=== PATIENT | female | born 1950 | race Caucasian/White ===

== ENCOUNTER 2018-08-28 14:07 | Inpatient (IN) | payer OTHER ==
[~2018-08-28] VITALS: Ht 160 cm; Wt 103.3 kg
--- NOTE | ~2018-08-28 | EKG ---
[address] [address] ELECTROCARDIOGRAM REPORT Name: BJ HODGES Room #: 206-P ADM IN M.R.#: [id number] Admission: 08/28/18 Attend Phys: Herb Clayton MD Discharge: Date of : 48 Report #: [id number] THIS REPORT FOR: //name// [facility] ED Test Date: 2018-08-28 Test Time: 14:34:55 Pat Name: BJ HODGES Department: Room: [facility] Gender: F Hop Strainer: BRITTANEY : 1950 Requested By: Rolando Crabtree Order Number: [id number] MD: Max Bartlett Measurements Intervals [place] Rate: 86 P: 72 [place]: 153 QRS: 136 QRSD: 85 T: 43 QT: 412 QTc: 493 Interpretive Statements Sinus rhythm Anteroseptal infarct, age indeterminate Compared to ECG 02/11/2006 10:39:03 Myocardial infarct finding now present Electronically Signed On 08-30-2018 11:07:32 TAX MAP TECHNICIAN by Max Bartlett [email or web address] <ELECTRONICALLY SIGNED> By: Max Bartlett MD 08/30/18 1107 1434 143 Max Bartlett MD /TANYA
--- NOTE | ~2018-08-28 | 2DMMODE ---
[facility] [address] [place] [address] 2 D/M-MODE ECHOCARDIOGRAM Name: BJ HODGES Room #: 206-P [facility] IN [facility]#: [id number] Admission: 08/28/18 Attend Phys: Herb Clayton MD Discharge: Date of : 48 Date of Service: 08/30/18 1032 Report #: [id number] THIS REPORT FOR: //name// APPROVED REPORT Study performed: 08/30/2018 09:38:24 EXAM: Comprehensive 2D, Doppler, and color-flow Echocardiogram Patient Location: In-Patient Room #: 206 Status: routine BSA: 2.04 HR: 92 bpm BP: 152/63 mmHg Other Information Study Quality: Technically Difficult/Adequate Technically limited study due to body habitus. Indications Pulmonary Embolism Dyspnea Chest Pain 2D Dimensions RVDd: 30.52 mm IVSd: 14.41 (7-11mm) LVOT Diam: 22.17 (18-24mm) LVDd: 41.76 mm PWd: 12.00 (7-11mm) Ascending Ao: 34.60 (22-36mm) LVDs: 30.67 (25-40mm) Aortic Root: 31.98 mm IVC: 21.00 mm Volumes Left Atrial Volume (Systole) Single Plane 4CH: 38.56 mL Single Plane 2CH: 41.63 mL LA ESV Index: 21.00 mL/m2 Aortic Valve AoV Peak Felix.: 1.64 m/s AO Peak Gr.: 10.80 mmHg LVOT Max P.45 mmHg LVOT Max V: 1.27 m/s COSTA Vmax: 2.98 cm2 Mitral Valve [facility] [address] [address] 2 D/M-MODE ECHOCARDIOGRAM Name: BJ HODGES Room #: [address] [place] [address] IN [facility]#: [id number] Admission: 08/28/18 Attend Phys: Herb Clayton MD Discharge: Date of : 48 Date of Service: 08/30/18 1032 Report #: [id number] E/A Ratio: 0.9 MV Decel. Time: 172.67 ms MV E Max Felix.: 0.63 m/s MV A Felix.: 0.70 m/s MV PHT: 50.07 ms IVRT: 83.04 ms Pulmonary Valve PV Peak Felix.: 1.21 m/s PV Peak Gr.: 5.92 mmHg Tricuspid Valve RAP Estimate: 5.00 mmHg Left Ventricle The left ventricle is normal size. There is normal left ventricular wall thickness. The left ventricular systolic function is normal. The left ventricular ejection fraction is within the normal range. LVEF is 65-70%. Grade II - pseudonormal filling dynamics. Right Ventricle The right ventricle is normal size. The right ventricular systolic function is normal. Atria The left atrium size is normal. Right atrium is at the upper limits of normal. Aortic Valve The aortic valve is normal in structure. No aortic regurgitation is present. There is no aortic valvular stenosis. Mitral Valve The mitral valve is normal in structure. There is no mitral valve regurgitation noted. No evidence of mitral valve stenosis. Tricuspid Valve The tricuspid valve is normal in structure. There is no tricuspid valve regurgitation noted. Unable to assess PA pressure. Pulmonic Valve Pulmonic valve is not well visualized. Great Vessels The aortic root is normal in size. IVC is upper limits of normal in size and collapses >50% with inspiration. [facility] [address] [place] [address] 2 D/M-MODE ECHOCARDIOGRAM Name: BJ HODGES Christopher Room #: 206-P [facility] IN .R.#: [id number] Admission: 08/28/18 Attend Phys: Herb Clayton MD Discharge: Date of : 48 Date of Service: 08/30/18 1032 Report #: [id number] Pericardium There is no pericardial effusion. <Conclusion> The left ventricle is normal size. There is normal left ventricular wall thickness. The left ventricular systolic function is normal. The right ventricle is normal size. The left atrium size is normal. The aortic valve is normal in structure. The mitral valve is normal in structure. There is no tricuspid valve regurgitation noted. Unable to assess PA pressure. <ELECTRONICALLY SIGNED> By: Thierno Rodriguez MD 08/30/181031 31 31 Thierno Rodriguez MD /INF
[2018-08-28 14:07] VITALS: BP 131/65
[~2018-08-28 14:07] MED LIST: ADVAIR 250-501 EACH INH; ALBUTEROL INHAL17 GM INH; AUGMENTIN 875875 MG PO; CELEXA20 MG PO; COLACE100 MG PO; FUROSEMIDE PO; LASIX 20 MG TAB20 MG PO; NORCO 5-325 TA1 EACH PO; PAXIL10 MG; PERCOCET PO; SINGULAIR 10 MG10 M1 PO; SPIRIVA
[2018-08-28 14:29] LABS: ABSOLUTE NEUTROPHILS 8.8 thou/uL (1.4-8.2); BASOPHILS 0.8 % (0.0-2.0); EOSINOPHILS 0.7 % (0.0-3.0); HEMATOCRIT 42.1 % (37.0-47.0); HEMOGLOBIN 14.3 gm/dL (12.0-15.0); LYMPHOCYTES 8.1 % (24.0-44.0); MCH 31.5 pg (26.0-34.0); MCHC 33.9 g/dL (28.0-37.0); MCV 93.1 fL (80.0-100.0); MONOCYTES 8.4 % (1.0-8.0); PLATELET COUNT 265 thou/uL (150-400); RBC 4.53 mil/uL (4.20-5.00); RDW 17.7 % (10.5-14.5); WBC 10.7 thou/uL (4.0-11.0)
[2018-08-28 14:31] LABS: BE(vivo) 1.3 mmol/L (-2 to +3); HCO3 27.9 mmol/L (22.0-26.0); PCO2 52.1 mmHg (35.0-45.0); PO2 73.9 mmHg (80.0-100.0); pH 7.347 (7.360-7.450)
[2018-08-28 14:39] LABS: ANION GAP 6 mmol/L (7-16); BUN 16 mg/dL (7-18); CALCIUM 8.5 mg/dL (8.5-10.1); CHLORIDE 96 mmol/L (98-107); CO2 31 mmol/L (21-32); CREATININE 1.4 mg/dL (0.6-1.0); GLUCOSE 134 mg/dL (74-106); POTASSIUM 4.5 mmol/L (3.5-5.1); SODIUM 133 mmol/L (136-145)
[2018-08-28 14:48] LABS: ALBUMIN 2.8 g/dL (3.4-5.0); SGOT 14 U/L (15-37); SGPT 16 U/L (30-65); TOTAL BILIRUBIN 0.6 mg/dL (<0.1-1.0); TOTAL PROTEIN 7.3 g/dL (6.4-8.2); TROPONIN-I <0.06 ng/mL (<0.06)
[2018-08-28 15:36] LABS: URINE BILIRUBIN NEGATIVE (Negative); URINE BLOOD 1+ (Negative); URINE CLARITY CLEAR; URINE COLOR YELLOW; URINE GLUCOSE-RANDOM* NEGATIVE (Negative); URINE KETONES NEGATIVE (Negative); URINE LEUKOCYTES-REFLEX NEGATIVE (Negative); URINE NITRITE-REFLEX NEGATIVE (Negative); URINE PROTEIN (DIPSTICK) 2+ (Negative); URINE SPECIFIC GRAVITY 1.015 (1.005-1.035); URINE UROBILINOGEN 0.2 E.U./dl (0.2-1.0)
[2018-08-28 15:46] LABS: SQUAMOUS 4-10 Moderate /LPF (0-3)
[2018-08-28 15:48] LABS: AMORPHOUS URATES Few /LPF (None Seen); BACTERIA-REFLEX 1-9 Few /HPF (None Seen); CASTS None Seen /LPF (None Seen); MUCUS 0-3 Light strn/LPF (None Seen); RENAL EPITHELIAL CELLS 0-3 Few /LPF (None Seen); TRANSITIONAL EPITHEL CELL 0-3 Few /LPF (None Seen); URINE RBC 3-10 Few /HPF (0-2); URINE WBC-REFLEX 0-5 Rare /HPF (0-5)
[2018-08-28] MEDS ORDERED: POTASSIUM20 PO (17:16)
[2018-08-28] MEDS ORDERED: NEPHROCAPS SOFT1 CAP PO (17:18)
[2018-08-28] MEDS ORDERED: CENTRUM SILVER1 EAC4 PO (17:18)
[2018-08-28] MEDS ORDERED: VITAMIN D1000 UNI1 PO (17:19)
[2018-08-28] MEDS ORDERED: BENADRYL25 MG PO (17:19)
[2018-08-28 17:56] VITALS: BP 159/76
[2018-08-28 21:32] VITALS: BP 142/96
[2018-08-29 00:21] VITALS: BP 133/64
[2018-08-29 04:54] LABS: CALCIUM 8.8 mg/dL (8.5-10.1); CREATININE 1.3 mg/dL (0.6-1.0); POTASSIUM 4.8 mmol/L (3.5-5.1)
[2018-08-29 05:09] LABS: HEMATOCRIT 41.3 % (37.0-47.0); HEMOGLOBIN 13.8 gm/dL (12.0-15.0); MCH 31.5 pg (26.0-34.0); MCHC 33.4 g/dL (28.0-37.0); MCV 94.2 fL (80.0-100.0); RBC 4.38 mil/uL (4.20-5.00); RDW 17.9 % (10.5-14.5); WBC 10.7 thou/uL (4.0-11.0)
[2018-08-29 05:58] VITALS: BP 158/82
[2018-08-29 07:40] VITALS: BP 157/90
[2018-08-29 12:10] VITALS: BP 149/80
[2018-08-29 16:00] VITALS: BP 175/88
[2018-08-29 20:14] VITALS: BP 174/82
[2018-08-30 04:45] VITALS: BP 152/63
[2018-08-30 07:43] VITALS: BP 137/63
[2018-08-30 11:34] VITALS: BP 147/78
[2018-08-30 15:43] VITALS: BP 132/84
[2018-08-30 20:26] VITALS: BP 146/63
[2018-08-31 04:56] VITALS: BP 146/93
[2018-08-31 08:00] VITALS: BP 135/58
[2018-08-31 15:45] VITALS: BP 151/69
[2018-08-31 19:15] VITALS: BP 146/61
[2018-09-01 01:08] LABS: ADENOVIRUS Negative (Negative); INFLUENZA A Negative (Negative); INFLUENZA B Negative (Negative); METAPNEUMOVIRUS Negative (Negative); PARAINFLUENZA 1 Negative (Negative); PARAINFLUENZA 2 Negative (Negative); PARAINFLUENZA 3 Negative (Negative); RHINOVIRUS Positive (Negative); RSV A Negative (Negative); RSV B Negative (Negative)
[2018-09-01 04:30] VITALS: BP 153/77
[2018-09-01 07:32] VITALS: BP 152/65
[2018-09-01 16:11] VITALS: BP 143/54
[2018-09-01 20:15] VITALS: BP 141/52
[2018-09-02 04:53] VITALS: BP 155/55
[2018-09-02 07:45] VITALS: BP 139/48
[2018-09-02] MEDS ORDERED: IPRAT-ALBUT 0.5-3 ML INH (09:49)
[2018-09-02] MEDS ORDERED: ELIQUIS5 MG PO ×2 (09:50→09:55)
[2018-09-02 13:36] VITALS: BP 139/48
[2018-09-02 13:47] VITALS: BP 139/48
[2018-09-02 14:12] VITALS: BP 139/48
[2018-09-02 15:00] VITALS: BP 139/48
== END 2018-09-02 15:03 | disposition home health service (06) | DRG 682 ==
LOC: ER 14:07 → 2N 17:06 → EROBS 17:06 → 2N 19:41 → ENTRNSPT 09-02 14:50 → EDTRNSPTSTS 09-02 14:53 → 2N 09-02 15:03
PROVIDERS: Hospitalist; Pediatrics; Physician Assistant
DX: N17.9 Acute kidney failure, unspecified (principal); I26.99 Other pulmonary embolism without acute cor pulmonale; J96.21 Acute and chronic respiratory failure with hypoxia; I50.31 Acute diastolic (congestive) heart failure; J44.1 Chronic obstructive pulmonary disease with (acute) exacerbation; J45.909 Unspecified asthma, uncomplicated; K21.9 Gastro-esophageal reflux disease without esophagitis; K43.9 Ventral hernia without obstruction or gangrene; F17.210 Nicotine dependence, cigarettes, uncomplicated; E11.9 Type 2 diabetes mellitus without complications; I11.0 Hypertensive heart disease with heart failure; Z79.899 Other long term (current) drug therapy; Z83.6 Family history of other diseases of the respiratory system; Z23 Encounter for immunization; Z88.6 Allergy status to analgesic agent
CPT/HCPCS: 10081

== ENCOUNTER 2019-10-13 13:30 | Inpatient (IN) | payer OTHER ==
[~2019-10-13] VITALS: Ht 160 cm; Wt 98.6 kg
[2019-10-13] VITALS (12 sets, daily range): BP systolic 118–146; BP diastolic 43–57
[~2019-10-13 13:30] MED LIST changes: +BENADRYL25 MG PO; +CENTRUM SILVER1 EAC4 PO; +ELIQUIS5 MG PO; +IPRAT-ALBUT 0.5-3 ML INH; +NEPHROCAPS SOFT1 CAP PO; +POTASSIUM20 PO; +VITAMIN D1000 UNI1 PO
[2019-10-13 14:05] LABS: HEMATOCRIT 25.1 % (37.0-47.0); HEMOGLOBIN 7.7 gm/dL (12.0-15.0); MCH 29.5 pg (26.0-34.0); MCHC 30.6 g/dL (28.0-37.0); MCV 96.3 fL (80.0-100.0); PLATELET COUNT 344 thou/uL (150-400); RBC 2.61 mil/uL (4.20-5.00); RDW 17.6 % (10.5-14.5); WBC 22.8 thou/uL (4.0-11.0)
[2019-10-13 14:08] LABS: CALCIUM 8.4 mg/dL (8.5-10.1); CREATININE 1.4 mg/dL (0.6-1.0); POTASSIUM 4.1 mmol/L (3.5-5.1)
[2019-10-13 14:18] LABS: TOTAL BILIRUBIN 0.3 mg/dL (<0.1-1.0); TOTAL PROTEIN 6.8 g/dL (6.4-8.2); TROPONIN-I 0.06 ng/mL (<0.06)
[2019-10-13 14:24] LABS: ABSOLUTE NEUTROPHILS 21.4 thou/uL (1.4-8.2); ANISOCYTOSIS 1+; PLATELET ESTIMATE NORMAL
[2019-10-13 15:13] LABS: APTT 30.5 Seconds (24.5-32.8); INR 1.3; PROTIME 13.1 Seconds (9.3-11.4)
--- NOTE | 2019-10-13 18:14 | NUR ---
REPORT CALLED TO NUCLEAR PLANT CONSTRUCTION WORKER-
--- NOTE | 2019-10-13 18:35 | NUR ---
BLOOD STILL INFUSING AT TIME OF TRANSFER
--- NOTE | 2019-10-13 18:45 | NUR ---
PATIENT ADMITTED TO ICU ROOM 243 FROM ED [id number] VIA CART. ATTACHED TO CARDIAC. O2 SAT AND BP MONITORS.
[2019-10-13 21:29] LABS: HEMATOCRIT 25.7 % (37.0-47.0); HEMOGLOBIN 7.9 gm/dL (12.0-15.0)
[2019-10-14] VITALS (22 sets, daily range): BP systolic 101–145; BP diastolic 44–66
--- NOTE | 2019-10-14 00:55 | NUR ---
CALLED EMEKA MOELLER ABOUT PT'S INCREASED NEED FOR O2 PT IS NOW ON HIGHFLOW NC AT 15L. NEW ORDERS RECIEVED.
[2019-10-14 01:28] LABS: MCH 28.8 pg (26.0-34.0); MCHC 30.9 g/dL (28.0-37.0); MCV 93.2 fL (80.0-100.0); RBC 2.79 mil/uL (4.20-5.00); RDW 18.9 % (10.5-14.5); WBC 21.3 thou/uL (4.0-11.0)
[2019-10-14 01:36] LABS: BE(vivo) 5.4 mmol/L (-2 to +3); HCO3 31.1 mmol/L (22.0-26.0); PCO2 52.1 mmHg (35.0-45.0); PO2 74.4 mmHg (80.0-100.0); pH 7.394 (7.360-7.450); sO2 94.7 % (92.0-98.0)
[2019-10-14 01:39] LABS: URINE BILIRUBIN NEGATIVE (Negative); URINE BLOOD 3+ (Negative); URINE CLARITY SL CLOUDY; URINE COLOR YELLOW; URINE GLUCOSE-RANDOM* NEGATIVE (Negative); URINE KETONES NEGATIVE (Negative); URINE NITRITE-REFLEX NEGATIVE (Negative); URINE PROTEIN (DIPSTICK) NEGATIVE (Negative); URINE UROBILINOGEN 0.2 E.U./dl (0.2-1.0)
[2019-10-14 01:39] LABS: CALCIUM 8.2 mg/dL (8.5-10.1); CREATININE 1.4 mg/dL (0.6-1.0); POTASSIUM 4.8 mmol/L (3.5-5.1)
[2019-10-14 01:40] LABS: URINE LEUKOCYTES-REFLEX 2+ (Negative)
[2019-10-14 01:53] LABS: BACTERIA-REFLEX 1-9 Few /HPF (None Seen); CASTS None Seen /LPF (None Seen); CRYSTALS None Seen /LPF (None Seen); MUCUS 0-3 Light strn/LPF (None Seen); SQUAMOUS 4-10 Moderate /LPF (0-3); WBC CLUMPS Few (None Seen)
--- NOTE | 2019-10-14 04:05 | NUR ---
ASSUMED PT CARE AT 1900. PT WAS A NEW ADMIT FROM ER. PT A&0X4. ADMISSION ASSESSMENTS AND HX COMPLETED. PT CAME TO THE UNIT ON A NON REBREATHER MASK. WAS SATTING AT 100% SO PT WAS CHANGED TO HIGHFLOW NC ON 10L. PT THEM BEGAN TO DESATURATE TO THR HIGH 80s. WAS TURNED UP TO 15L THEN MILLING MACHINE SET UP OPERATOR SUNNI NOTIFIED. (SEE NOTE ABOUT MILLING MACHINE SET UP OPERATOR CONTACT). PT WAS PLACED ON BIPAP A LITTLE AFTER 0030. PT IS STABLE NOW. WITH SATS >97. URINE SPECIMEN COLLECTED, BLOOD CULTURES DRAWN, AND ABX STARTED ON THIS SHIFT. PT MEDS TAKEN TO PHARMACY. PT IS STABLE NOW AND WILL CONTINUE TO CLOSELY MONITOR PER POC.
--- NOTE | 2019-10-14 12:00 | NUR ---
chart review, cm visited with pt at bedside. she is a & o x 3 with some forgetful , pleasant and able to make her needs know. " live with grandson in apartment 3 steps to enter with hand rail. use oxygen at home 3 L. don't have shower chair but need one. [employer] comes out 1 x month or more in need it, cook, clean, manage own medication and drive vehicle. will cont following as needed for dc needs.
--- NOTE | 2019-10-14 15:21 | NUR ---
PT TAKEN OF BIPAP TODAY PUT ON 15L NC, TOLERATING WELL, EVIDENCE BY O2 SATURATIONS ABOVE 95%. PT UP TO BSC TODAY, HAD LIQUID STOOL, NURSE DE-COMPACTED HARD STOOL. MIDLINE PLACED
[2019-10-14 15:30] LABS: HEMATOCRIT 23.7 % (37.0-47.0); HEMOGLOBIN 7.4 gm/dL (12.0-15.0)
--- NOTE | 2019-10-14 17:46 | NUR ---
PROCEDURE:MIDLINE RISK, BENEFITS, AND ALTERNATIVE TREATMENT DISCUSSED WITH THE PATIENT. TEACING GIVEN RELATED TO POSSIBLE COMPLICATIONS SUCH BLEEDING, INFECTION, CLOT, OR VESSEL PERFORATION. INSTRUCTION GIVEN RELATED TO INFECTION PREVENTION. PATIENT GIVES VERBAL CONSENT. TIME OUT COMPLETED WITH CYLINDER HONER. MIDLINE PLACED FOR FREQ BLOOD DRAWS AND IV ANTIBIOTICS. MIDLINE PLACED TO RUE BASILIC VEIN. ONE STICK AND NO COMPLICATIONS. PATIENT TOLERATED WELL. MIDLINE LENGTH =14CM. EXT =0CM. MIDLINE IN RU EXTREMITY. ICU CHARGE NURSE NOTIFIED MIDLINE OKAY TO USE.
[2019-10-15] VITALS (21 sets, daily range): BP systolic 122–158; BP diastolic 47–68
--- NOTE | 2019-10-15 05:10 | NUR ---
NO OVER NIGHT EVENTS. PT. RESTED WELL ON BIPAP WITH NO ISSUES. REMAINS PLEASANT AND CALM. NPO MAINTAINED. SWABS GIVEN FOR ORAL CARE. ASSESSMENTS AND VITAL SIGNS CHARTED. PT. IS PROGRESSING TOWARDS GOALS. WILL CONTINUE TO MONITOR.
[2019-10-15 05:19] LABS: HEMATOCRIT 23.3 % (37.0-47.0); HEMOGLOBIN 7.1 gm/dL (12.0-15.0); MCH 28.9 pg (26.0-34.0); MCHC 30.6 g/dL (28.0-37.0); MCV 94.6 fL (80.0-100.0); RBC 2.46 mil/uL (4.20-5.00); RDW 18.9 % (10.5-14.5); WBC 20.7 thou/uL (4.0-11.0)
[2019-10-15 05:57] LABS: CALCIUM 8.4 mg/dL (8.5-10.1); CREATININE 1.1 mg/dL (0.6-1.0); POTASSIUM 4.3 mmol/L (3.5-5.1)
--- NOTE | 2019-10-15 11:16 | HC ---
[facility] [place] [address] CONSULTATION Name: BJ HODGES Room #: [facility] IN M.R.#: [id number] Admission: 10/13/19 Attend Phys: Herb Clayton MD Discharge: Date of : 48 Report #: [id number] THIS REPORT FOR: cc: Yvonne Ulloa MD,Joel Marquez MD, MD ~ CC: Herb Ulloa DATE OF SERVICE: 10/14/2019 ENDOCRINE CONSULTATION NOTE CONSULTING PHYSICIAN: Dr. Clayton. REASON FOR CONSULTATION: Bilateral adrenal masses. HISTORY OF PRESENT ILLNESS: This is a 69-year-old female patient whose medical background is significant for multiple medical issues including COPD that is oxygen dependent, as well as a pulmonary embolism, asthma and congestive heart failure. The patient presented yesterday with complaints of progressive shortness of breath that have slowly worsened over the course of a few weeks. Also, this was accompanied by worsening left hip pain that the patient could not tolerate. The patient presented to the ER and she was found to have acute hypoxic respiratory failure as well as a CHF exacerbation and was admitted for further care and monitoring. While the patient did well in regards to her respiratory problems and has felt progressively better since her admission, I was called to evaluate the issue of bilateral adrenal masses that were noted on the patient's CT evaluation. When I asked the patient about whether or not she has any knowledge of these, the patient answered that she is not aware that she had adrenal masses. The patient does not have major difficulties maintaining well controlled blood pressure. She has not had major body weight changes over the past few years, she does not endure discrete spells of palpitations, flushing or severe frequent headaches. REVIEW OF SYSTEMS: CONSTITUTIONAL: Fatigue, tiredness, no weight changes. No fever or chills. HEENT: Negative for sinus pain, sinus congestion, ear drainage. PULMONARY: Worsening shortness of breath, dyspnea on exertion, orthopnea, occasional cough, but no hemoptysis. CARDIAC: Dyspnea on exertion, orthopnea, lower extremity swelling. No syncope or presyncope or chest pain. GASTROINTESTINAL: Abdominal distention, abdominal discomfort, nausea, but no vomiting. NEUROLOGY: Negative for loss of consciousness, severe frequent headaches, [facility] [address] [place] [address] CONSULTATION Name: BJ HODGES Room #: [address] [place] [address] IN [facility].#: [id number] Admission: 10/13/19 Attend Phys: Herb Clayton MD Discharge: Date of : 48 Report #: [id number] seizure activity. SKIN: Negative for rash, ulceration or other major abnormalities. PSYCHIATRIC: Negative for delusions, hallucinations. Otherwise, review of systems noncontributory unless mentioned in HPI. PAST MEDICAL HISTORY: 1. COPD, oxygen dependent at home. 2. History of pulmonary embolism. 3. Congestive heart failure. 4. Osteoarthritis. 5. Anemia. 6. Tobacco use. 7. GERD. 8. Asthma. PAST SURGICAL HISTORY: Noted for right hand surgery, tubal ligation, cholecystectomy, bladder lift and hernial repair. OUTPATIENT MEDICATIONS: Include: 1. Atrovent. 2. Eliquis. 3. Lasix. 4. Percocet. 5. Colace. 6. Spiriva. 7. Advair. 8. Albuterol. 9. Celexa. 10. Singulair. 11. K-Dur. 12. Vitamin D. 13. Benadryl. ALLERGIES: No known drug allergies. However, SHE IS SENSITIVE TO HYDROCODONE IN THE FORM OF NAUSEA AND VOMITING. FAMILY HISTORY: Noncontributory. SOCIAL HISTORY: The patient lives with her grandson who helps with her daily care needs. She is a longtime smoker and continues to smoke about half pack per day. She denies use of alcohol or illicit drugs. PHYSICAL EXAMINATION: GENERAL: Pleasant female patient who is not in apparent distress. VITAL SIGNS: Blood pressure is 106/46 mmHg, heart rate is 72 beats per minute, respirations 20 per minute, temperature [place] 36.[address] [place] [address] CONSULTATION Name: BJ HODGES Room #: [facility] IN ..#: [id number] Admission: 10/13/19 Attend Phys: Herb Clayton MD Discharge: Date of : 48 Report #: [id number] CONSTITUTIONAL: The patient is lying down in bed. She appears comfortable, not in apparent pain or distress. HEENT: Anicteric sclerae. Intact extraocular motions. NECK: Supple, without JVD, carotid bruits or lymphadenopathy. I do not appreciate thyromegaly. CHEST: Noted for limited air entry bilaterally with scattered rales, wheezes, no crackles. HEART: Regular rate and rhythm without murmurs or gallops. ABDOMEN: Soft and lax without tenderness or organomegaly. She has active bowel sounds. EXTREMITIES: Lower extremity exam is noted for +1 ankle edema bilaterally with stasis dermatitis, but no skin breaks or ulcerations. NEUROLOGIC: Awake, alert and oriented to time, place and person. The remainder of her examination is nonfocal. PSYCHIATRIC: Pleasant, interactive, appropriate. Normal mood and affect. LABORATORY TESTING: Blood glucose values were within normal limits running from 99-124 mg/dL. Otherwise, sodium 140, potassium 4.8, chloride 103, CO2 of 33, anion gap 4, BUN 34, creatinine 1.4, AST 14, lipase 52. Total bilirubin 0.3, calcium 8.2, alkaline phosphatase 130, ALT 16, total protein 6.8, albumin 2.0. EGFR 37. Troponin 0.06. White blood count 21.3, hemoglobin 8.0, hematocrit 26.0, platelets 286. A CT scan of the abdomen and pelvis was done yesterday without contrast and was remarkable for a right adrenal mass that was described as low density and that measures 3.1 x 4.6 cm compared to 10 mm in 2016. Also, the patient is noted to have a left adrenal mass that is also low density in its outlook and that measures 5.8 x 6.5 x 7.8 cm in size and was noted at [address] scan did not comment on the presence of adrenal masses. Her abdomen and pelvis CT scan report from 11/30/2015 was reviewed at length and it did show bilateral adrenal masses measuring 11 mm on each side. ASSESSMENT AND PLAN: Adrenal masses. As noted above, the patient was affirmed as having bilateral adrenal masses. Apparently, these were noted first in 2016 and were described back then as likely adenomas measuring 11 mm each. The striking development on the current CT scan is the significant enlargement of both adrenal lesions and for both to have exceeded 4 cm as an absolute size, which is a size threshold that increases the risk for malignancy. The silver lining to this development is that neither CT scan was adrenally dedicated and as such making hard comparisons can be misleading as it is quite feasible that these masses measured larger than previously described, but the accurate sizing was not feasible due to the lack of adrenal focus back in 2016. Also, having had a 4 year lag between the two CT scans in of itself speak strongly against the possibility of adrenocortical carcinoma as one would expect limited survival for this time span with ACC as well as extensive metastatic features, neither of which is a concern at the present time. That said, I would approach the patient as though this is a new diagnosis of [address] [address] CONSULTATION Name: BJ HODGES Room #: 243-P ADM IN M.R.#: [id number] Admission: 10/13/19 Attend Phys: Herb Clayton MD Discharge: Date of : 48 Report #: [id number] adrenal masses and one would like to obtain a functional endocrine workup. Since she is not clinically cushingoid and given the fact that she is receiving high dose glucocorticoid therapy for her pulmonary issues, I will forego a testing for cortisol excess at this point in time, but would like to obtain serum aldosterone, serum renin activity and plasma metanephrines to rule out aldosteronism and a pheochromocytoma. The clinical outlook of the patient makes a functional lesion quite unlikely. More importantly, I would certainly like to obtain an adrenally dedicated imaging study to shed more light on the accurate size and consistency of these adrenal masses. An MRI study would be ideal and I would certainly recommend that we wait until the patient is clinically stable to pursue that. I believe that any definitive decisions should keep in mind that since both adrenal glands are involved with apparently large masses, the benefit of surgical intervention should be weighed carefully against the obvious risk and hardship of losing adrenal function completely if both masses were to be resected. That said, accurate sizing and consistency assessment would be crucial in making therapeutic recommendations to this patient barring surprises in her functional assessment as well. These considerations were discussed with the patient at length and I will proceed with laboratory studies and go from there. I have reviewed the patient's clinical care notes, laboratory data, radiologic studies both past and present for over 35 minutes. I certainly appreciate this consultation by Dr. Clayton. <ELECTRONICALLY SIGNED> By: Joel Miner MD 10/15/19 1116 1255 [id number] Joel Miner MD /nt
--- NOTE | 2019-10-15 18:30 | NUR ---
PATIENT RESTED THROUGHOUT THE DAY. OXYGEN WAS TITRATED DOWN TOLERATED. O2 SATURATION GOAL IS 88%-92%. SHE EXPRESSED FEELS LIKE SHE CAN BREATH BETTER TODAY. SHE HAS BEEN TO THE COMMODE WITH ASSISTANCE WITHOUT SUCCESS OF A BOWEL MOVEMENT. SHE DENIES NAUSEA. BEDSIDE SWALLOW EVALUATION PERFORMED WITH SIPS OF WATER AND COLETTE CRACKER. NO APPEARANCE OF POCKETING, COUGHING, OR CHOKING NOTED WITH THIS ASSESSMENT. NO HOARSE VOICE OR ALTERRED LUNG SOUNDS POST ASSESSMENT OF SWALLOWING. DIET ADVANCED TOLERATED PER DR. NEWBERRY. IV FLUIDS DISCONTINUED PER PHYSICIAN ORDER. URINE OUTPUT GREATER THAN 30ML/HOUR THIS SHIFT. PLAN OF CARE IS TO CONTINUE TO MONITOR PATIENT STATUS OF VITAL SIGNS Q1 HOUR, PULMONARY ASSESSMENTS Q2-4 HOURS, INCREASE ACTIVITY TOLERATED, AND WEAN OFF OXYGEN REQUIREMENTS TOLERATED. PATIENT PROGRESSING TOWARDS PLAN OF CARE.
[2019-10-16] VITALS (23 sets, daily range): BP systolic 105–164; BP diastolic 29–99
--- NOTE | 2019-10-16 04:50 | NUR ---
NO OVERNIGHT EVENTS. PT. DID NOT SLEEP WELL THROUGH NIGHT DUE TO BEING UNCOMFORTABLE AND HIP PAIN. STILL VERY PLEASANT WITH NURSING STAFF. VSS. NO BM. ASSESSMENTS AND VITAL SIGNS CHARTED. PT. PROGRESSING TOWARDS GOALS. POSSIBLE TRANSFER TODAY DEPENDING ON LABS? CONTINUE TO FOLLOW POC. WILL CONTINUE TO MONITOR.
--- NOTE | 2019-10-16 04:54 | NUR ---
UPON 4 AM BIODIESEL PRODUCTION TECHNICIAN NOTICED BRUISING AROUND MIDLINE AND RAC ACCESS SITE. STRATING AT ACCESS SITE DOWN TO WRIST. WHEN ASKED PT. STATED THAT IT DOES NOT HURT AND STINGS A LITTLE SOMETIMES. PT. TOOK ELLIQUIS BEFORE COMING INTO HOSPITAL. WILL CONTINUE TO MONITOR FOR FURTHER BRUISING.
[2019-10-16 05:56] LABS: HEMATOCRIT 24.8 % (37.0-47.0); HEMOGLOBIN 7.3 gm/dL (12.0-15.0); MCH 28.7 pg (26.0-34.0); MCHC 29.6 g/dL (28.0-37.0); MCV 96.8 fL (80.0-100.0); PLATELET COUNT 241 thou/uL (150-400); RBC 2.56 mil/uL (4.20-5.00); RDW 19.1 % (10.5-14.5); WBC 21.3 thou/uL (4.0-11.0)
[2019-10-16 06:42] LABS: ABSOLUTE NEUTROPHILS 19.6 thou/uL (1.4-8.2); ANISOCYTOSIS 1+; PLATELET ESTIMATE NORMAL
[2019-10-16 06:44] LABS: ALBUMIN 1.7 g/dL (3.4-5.0); CALCIUM 8.4 mg/dL (8.5-10.1); CREATININE 1.2 mg/dL (0.6-1.0); MAGNESIUM 2.4 mg/dL (1.8-2.4); POTASSIUM 5.4 mmol/L (3.5-5.1); TOTAL BILIRUBIN 0.4 mg/dL (<0.1-1.0); TOTAL PROTEIN 6.3 g/dL (6.4-8.2)
[2019-10-16 18:44] LABS: HEMATOCRIT 26.6 % (37.0-47.0)
[2019-10-16 18:54] LABS: CALCIUM 8.7 mg/dL (8.5-10.1); CREATININE 1.3 mg/dL (0.6-1.0); POTASSIUM 5.6 mmol/L (3.5-5.1)
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
[2019-10-17] VITALS (12 sets, daily range): BP systolic 103–176; BP diastolic 44–90
--- NOTE | 2019-10-17 04:48 | NUR ---
NO OVERNIGHT EVENTS. SLEPT WELL THROUGH MOST OF NIGHT. PT. WENT DOWN FOR CT AND XRAY WITH NO COMPLICATIONS BY WHEELCHAIR. ABDOMINAL BINDER NOT AVAILABLE UNTIL 0400. ASSESSMENTS AND VITAL SIGNS CHARTED. PT. PROGRESSING TOWARDS GOALS. WILL CONTINUE TO MONITOR.
--- NOTE | 2019-10-17 11:46 | 2DMMODE ---
[facility] [place] [address] 2 D/M-MODE ECHOCARDIOGRAM Name: BJ HODGES Christopher Room #: 243-P ADM IN M.R.#: [id number] Admission: 10/13/19 Attend Phys: Herb Clayton MD Discharge: Date of : 48 Report #: [id number] THIS REPORT FOR: cc: Yvonne Ulloa MD,Yvonne Mckeon,Scotty Lozano MD [facility] ~ APPROVED REPORT Study performed: 10/17/2019 10:35:24 EXAM: Comprehensive 2D, Doppler, and color-flow Echocardiogram Patient Location: ICU Room #: 243 Status: routine BSA: 1.91 HR: 95 bpm BP: 144/90 mmHg Other Information Study Quality: Adequate Indications COPD heart failure 2D Dimensions RVDd: 36.07 mm IVSd: 11.87 (7-11mm) LVOT Diam: 18.90 (18-24mm) LVDd: 45.56 mm PWd: 11.05 (7-11mm) Ascending Ao: 31.63 (22-36mm) LVDs: 29.91 (25-40mm) Aortic Root: 33.49 mm IVC: 25.00 mm Volumes Left Atrial Volume (Systole) Single Plane 4CH: 43.57 mL Single Plane 2CH: 60.66 mL LA ESV Index: 29.00 mL/m2 Aortic Valve AoV Peak Felix.: 1.76 m/s AO Peak Gr.: 12.51 mmHg LVOT Max P.96 mmHg LVOT Max V: 1.32 m/s COSTA Vmax: 2.09 cm2 [facility] [address] [place] [address] 2 D/M-MODE ECHOCARDIOGRAM Name: BJ HODGES Christopher Room #: 243-P [facility] IN [facility]#: [id number] Admission: 10/13/19 Attend Phys: Herb Clayton MD Discharge: Date of : 48 Report #: [id number] Mitral Valve MV Decel. Time: 149.02 ms MV E Max Felix.: 1.25 m/s IVRT: 109.19 ms Pulmonary Valve PV Peak Felix.: 0.92 m/s PV Peak Gr.: 3.38 mmHg Tricuspid Valve TR Peak Felix.: 4.05 m/s RAP Estimate: 15.00 mmHg TR Peak Gr.: 66.17 mmHg PA Pressure: 81.00 mmHg Left Ventricle The left ventricle is normal size. There is normal LV segmental wall motion. Borderline concentric left ventricular hypertrophy. Left ventricular systolic function is hyperdynamic. LVEF is >70%. This study is not technically sufficient to allow evaluation of the LV diastolic function. Right Ventricle The right ventricle is normal size. The right ventricular systolic function is normal. Atria The left atrium size is normal. Right atrium is at the upper limits of normal. Aortic Valve The aortic valve is normal in structure. Mild aortic regurgitation. There is no aortic valvular stenosis. Mitral Valve The mitral valve is normal in structure. Trace mitral regurgitation. No evidence of mitral valve stenosis. Tricuspid Valve The tricuspid valve is normal in structure. Trace to mild tricuspid regurgitation. PAP is estimated at 75 mmHg. Pulmonic Valve The pulmonary valve is normal in structure. There is no pulmonic valvular regurgitation. Great Vessels The aortic root is normal in size. IVC is dilated and collapses [facility] [address] [place] [address] 2 D/M-MODE ECHOCARDIOGRAM Name: CARROLLBJ Room #: 243-P ADM IN M.R.#: [id number] Admission: 10/13/19 Attend Phys: Herb Clayton MD Discharge: Date of : 48 Report #: [id number] <50% with inspiration. Pericardium There is no pericardial effusion. <Conclusion> Left ventricular systolic function is hyperdynamic. There is normal LV segmental wall motion. LVEF is >70%. The aortic valve is normal in structure. Mild aortic regurgitation, no stenosis. The mitral valve is normal in structure. Trace mitral regurgitation. Trace to mild tricuspid regurgitation. Pulmonary artery pressure estimated at 75 mmHg. There is no pericardial effusion. <ELECTRONICALLY SIGNED> By: Scotty Mckeon MD, [facility] 10/17/19 1145 1145 1145 Scotty Mckeon MD, FACC /INF
--- NOTE | 2019-10-17 16:22 | NUR ---
ASSESSMENTS AND INTERVENTIONS DOCCUMENTED. PATIENT HAVING BM THROUGH OUT THE SHIFT. SWALLOW EVAL DONE AND DIET ORDERED. PATIENT SUPPOSED TO HAVE EGD TOMORROW 10/18/2019. ORDERS RECIEVED TO TRANSFER PATIENT PER DR. NEWBERRY TO MED SURG. PATIENT TRANFERRED TO 4W. BARGE ENGINEER NEEDED PATIENT IS ON 10L NC.
--- NOTE | 2019-10-17 18:41 | NUR ---
Received pt from ICU, on 10 l of O2 with MUSIC ADAPTER, SPO2 goal is 88-90%. FC in place and draining yellow urine. VS stable, no signs or verbalizations of distress have been noted. Diet is well tolerated. POC followed, endorsed to the night nurse.
[2019-10-18 03:55] VITALS: BP 146/75
--- NOTE | 2019-10-18 05:47 | NUR ---
RECEIVED IN BED. AXOX3. CONT PULSE OX MONITORING. BIPAP STAND BY AT BEDSIDE. O2 TAPERED PER RT. SANTOS INTACT. NOSE BLEEDING NOTED WITH SOME CLOTS. CALLED COURTNEYB PAPER INSERTER POLITICAL SCIENCE PROFESSOR FOR AND RECEIVED ORDER FOR AFRIN SPRAY AND CONT TO MONITOR. NO S/S ACUTE DISTRESS NOTED OR REPORTED AT THIS TIME. WILL CONT TO MONITOR FOR ANY CHANGES IN CONDITION.
[2019-10-18 05:52] LABS: ALBUMIN 2.1 g/dL (3.4-5.0); CALCIUM 8.9 mg/dL (8.5-10.1); MAGNESIUM 2.4 mg/dL (1.8-2.4); PHOSPHORUS 3.2 mg/dL (2.5-4.9); POTASSIUM 4.7 mmol/L (3.5-5.1); TOTAL BILIRUBIN 0.5 mg/dL (<0.1-1.0); TOTAL PROTEIN 6.9 g/dL (6.4-8.2)
[2019-10-18 05:58] LABS: HEMATOCRIT 27.2 % (37.0-47.0); HEMOGLOBIN 8.3 gm/dL (12.0-15.0); MCH 28.9 pg (26.0-34.0); MCHC 30.4 g/dL (28.0-37.0); PLATELET COUNT 249 thou/uL (150-400); RBC 2.86 mil/uL (4.20-5.00); WBC 23.8 thou/uL (4.0-11.0)
[2019-10-18 08:11] VITALS: BP 142/44
[2019-10-18 08:33] LABS: ABSOLUTE NEUTROPHILS 21.4 thou/uL (1.4-8.2)
[2019-10-18 08:34] LABS: ANISOCYTOSIS 1+
[2019-10-18 14:09] VITALS: BP 134/50
--- NOTE | 2019-10-18 19:13 | NUR ---
Assumed pt care this am, on 5l O2. FC in place draining yellow urine, awating Dr. Salguero to david jimenez as discussed in the morning. VS stable, pt is able to use the commode and stayed on the chair for meals. Diet and medications are well tolerated. Hydration promoted. POC followed, no signs or verbalizations of distress have been noted.
[2019-10-18 19:39] VITALS: BP 144/77
[2019-10-19 07:25] VITALS: BP 146/76
--- NOTE | 2019-10-19 07:41 | NUR ---
ASSUMED PT CARE AROUND 1930. AXOX4. NO S/S ACUTE DISTRESS NOTED OR REPORTED AT THIS TIME. CARE TRANSFERRED TO INCOMING RN AT THIS TIME.
[2019-10-19 12:23] LABS: % SATURATION 21 % (20-39); IRON 39 ug/dL (50-170); TIBC 187 ug/dL (250-450)
--- NOTE | 2019-10-19 12:32 | EKG ---
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 : 1950 Requested By: Preston Bronson Order Number: [id number] MD: Scotty Mckeon Measurements Intervals [place] Rate: 101 P: 73 IL: 144 QRS: 124 QRSD: 82 T: 21 QT: 346 QTc: 449 Interpretive Statements Sinus tachycardia Multiple ventricular premature complexes Left posterior fascicular block Nonspecific T abnrm Compared to ECG 08/28/2018 14:34:55 Ventricular premature complex(es) now present Electronically Signed On 10-14-2019 8:54:32 BORING MACHINE OPERATOR PRODUCTION by Scotty Mckeon [email or web address] <ELECTRONICALLY SIGNED> By: Scotty Mckeon MD, [facility] 10/14/19 0854 1332 1332 Scotty Mckeon MD, [facility] /EPI
[2019-10-19 13:25] LABS: FOLIC ACID 4.2 ng/mL (8.6-58.9)
--- NOTE | 2019-10-19 16:01 | NUR ---
Assumed pt care at 7am.Assessment completed.vss.Assisted pt with tray setup at all meals.Fair appetite noted.Pt on 6lnc with no soa.Therapist transfered pt to chair later this afternoon.Pt has 2 soft stool and pericare given.Dr Rodriguez here,new order noted.Will continue to monitor.
[2019-10-19 20:27] VITALS: BP 125/35
[2019-10-20 07:56] VITALS: BP 143/62
--- NOTE | 2019-10-20 08:07 | NUR ---
pt alert and oriented x4 up with sba to bsc. voiding qs had a couple small loose stools but they are returning to soft formed. iv antibiotics given as ordered pt on 6 liters o2 via nc RT tx's continue continue poc.
--- NOTE | 2019-10-20 11:51 | NUR ---
Assumed pt care at 7am.Pt in chair resting with o2 on at 6lnc. Assessment completed.vss.Pt wanted to mve around more today.Therapist assisted pt with ambulation in the room.Pt tolerated meds and diet.No soa or verbal c/o at present.Will continue to monitor.
[2019-10-20 11:56] VITALS: BP 134/63
--- NOTE | 2019-10-20 12:19 | NUR ---
Assess for length of stay. Admitted with SOA, adrenal masses. Pt with 30 lb wt loss however this has occured over ~1.5 yrs/13%. Has good appetite and eating 100% of meals. Folate deficient so was started on supplementation. Constipation has resolved with bowel regimen. Low nutrition risk
--- NOTE | 2019-10-20 12:39 | NUR ---
SW reviewed chart and spoke with nursing and attending physician. Pt was transferred to from ICU and is progressing towards goals for discharge. Recommendation made for post-acute placement. Will need insurance authorization. JORGE met with pt at bedside to discuss post acute placement. Pt state she will consider SNF placement, as she is unable to contact her family. Per pt, pt's family are all on a family plan and the bill was not paid. Pt is unable to contact family at this time. Pt also states that she missed a court date at [facility] [address] for a tenant dispute related case. Pt states she notified the court herself, but does not know if her family is still at her home, or if they have been evicted. Pt's 8 yr old granddtr lives with them, and pt reports there has been an open case with DFS regarding the custody of pt's granddtr. SW provided pt in-network SNF list for review. Pt is currenlty on 5L of continuous O2. Pt was on 3L at HS at home through [facility]. SW attempted to contact pt's son, Bar. Phone is not in service, as pt mentioned. Pt's family is aware of pt's hospitalization. SW encouraged pt to contact SW if she needs documentation to provide to the court. Pt to review SNF list and notify SW of preference. JORGE attempted to call DFS to follow up on case with DFS to determine if there is an open case. Unable to leave message. JORGE is following to assist as needed with discharge planning.
[2019-10-20 15:01] LABS: HEMATOCRIT 26.1 % (37.0-47.0); MCH 29.2 pg (26.0-34.0); MCHC 30.7 g/dL (28.0-37.0); MCV 95.2 fL (80.0-100.0); PLATELET COUNT 192 thou/uL (150-400); RBC 2.74 mil/uL (4.20-5.00); RDW 17.9 % (10.5-14.5); WBC 23.6 thou/uL (4.0-11.0)
[2019-10-20 15:10] VITALS: BP 134/63
[2019-10-20 15:25] LABS: ALBUMIN 1.9 g/dL (3.4-5.0); CREATININE 0.9 mg/dL (0.6-1.0); POTASSIUM 4.1 mmol/L (3.5-5.1); TOTAL BILIRUBIN 0.6 mg/dL (<0.1-1.0); TOTAL PROTEIN 5.8 g/dL (6.4-8.2)
[2019-10-20 16:07] LABS: ABSOLUTE NEUTROPHILS 22.7 thou/uL (1.4-8.2); ANISOCYTOSIS 1+
[2019-10-20 19:16] VITALS: BP 132/63
[2019-10-21 07:32] VITALS: BP 150/68
--- NOTE | 2019-10-21 09:34 | NUR ---
PROGRESS PT A/O X 4. UP WITH SBA TO BSC GETS WINDED WITH ACTIVITY BUT KNOWS TO REST AND SPACE OUT ACTIVITIES TO CONSERVE ENERGY. IV ANTIBIOTICS CONTINUE PT WBC'S STILL ELEVATED. CONCERNED ABOUT LIVING ARRANGEMENTS AND SOCIAL WORK AWARE TO SPEAK WITH PT TODAY. UP MOST OF NIGHT. SLEEPS IN CHAIR. ON 6 LITERS O2 RT TX'S CONTINUE. CONTINUE POC.
[2019-10-21 12:08] VITALS: BP 133/61
--- NOTE | 2019-10-21 13:14 | NUR ---
JORGE reviewed chart and spoke with nursing and attending physician. Pt is progressing towards goals for discharge. JORGE met with pt at bedside to discuss discharge plan. Pt states she does not want to go to a SNF. Pt wants to return home. SW offered to arrange HH services. Pt declines. Pt had paperwork regarding her recent court date. Pt missed court date, as it was scheduled on the day she was admitted to the hospital. JORGE contacted [employer] firm, that was listed on paperwork. JORGE spoke with Glenys in the law firm to notify of pt's hospitalization. Glenys states that SW can provide documentation stating pt's hospitalization, they will notify pt's civil attorney/legal file clerk. JORGE faxed letter notifying of pt's hospital admission date and current status. Copy of letter and cour documentation placed on pt's chart. Rest/exercise oximetry ordered to evaluate pt for new home O2 needs. JORGE spoke with Alexandra at [facility]. Pt currently has a concentrator and portable O2 tanks at home. Portable tank to be delivered to pt's room. SW faxed clinical info and will need rest/exercise oximetry and script to faxed when available. Pt states she will call an Uber for transportation home. Should pt need a cab ride home, warehouse person or public safety will need to be called for a cab voucher. Pt is still unable to contact her family, due to phones being out of service. Pt called [employer], who state that the phone bill was paid on 10/08. However, phones say they are out of service. JORGE is following to assist as needed with discharge planning. [facility]--
--- NOTE | 2019-10-21 14:35 | NUR ---
Took over patient's care at 1200. Received awake on chair. On O2 at 3lpm via nasal cannula; using Bipap at night. On blood sugar monitoring, taken and recorded accordingly; with sliding scale insulin. Able to use bedside commode with AO1, occassional stress incontinence. With R upper midline in place- dressing C/D/I, flushing well; with NS at 50cc/hr, infusing well. With RLE edema, kept legs elevated. Falls bundle in place. Assisted in ADLs.
[2019-10-21 15:00] VITALS: BP 136/56
[2019-10-21 19:21] VITALS: BP 130/37
[2019-10-22 03:27] VITALS: BP 130/37
--- NOTE | 2019-10-22 03:45 | NUR ---
PT CARE ASSUMED AT 1900 WITH PT IN RECLINER WATCHING TV.PT IS UP WITH X1 ASSIST TO BSC.PT HAS BLE EDEMA +4.PT IS ACCUCHECK ACHS .PT ON 4L OF O2 AND USES BIPAP AT NIGHT.PT CHOOSE TO SPEND NIGHT IN RECLINER.WILL CONTINUE TO MONITOR TILL EOS
[2019-10-22 06:49] LABS: HEMATOCRIT 28.5 % (37.0-47.0); HEMOGLOBIN 8.7 gm/dL (12.0-15.0); MCH 28.8 pg (26.0-34.0); MCHC 30.4 g/dL (28.0-37.0); MCV 94.5 fL (80.0-100.0); PLATELET COUNT 210 thou/uL (150-400); RBC 3.02 mil/uL (4.20-5.00); RDW 17.9 % (10.5-14.5); WBC 33.8 thou/uL (4.0-11.0)
[2019-10-22 07:01] LABS: CALCIUM 8.3 mg/dL (8.5-10.1); CREATININE 0.9 mg/dL (0.6-1.0); MAGNESIUM 1.8 mg/dL (1.8-2.4); PHOSPHORUS 2.2 mg/dL (2.5-4.9); POTASSIUM 3.6 mmol/L (3.5-5.1); TOTAL BILIRUBIN 0.4 mg/dL (<0.1-1.0); TOTAL PROTEIN 6.7 g/dL (6.4-8.2)
[2019-10-22 08:44] VITALS: BP 151/48
[2019-10-22 11:08] LABS: ABSOLUTE NEUTROPHILS 30.8 thou/uL (1.4-8.2); PLATELET ESTIMATE NORMAL
--- NOTE | 2019-10-22 11:12 | NUR ---
Received awake on bed. Due medications given as prescribed, able to swallow meds w/o difficulty. With O2 at 4lpm via nasal cannula, using Bipap at night. On renal diet- tolerating well; no nausea, no vomiting and no abdominal pain noted. On blood sugar monitoring, taken and recorded accordingly; with sliding scale insulin prescribed. With NS at 50cc/hr, infusing well at R upper arm midline. With bilateral lower extremity edema- elevated. Able to sit out on chair and prefers to stay there during the daytime. Able to use the bedside commode with moderate assist and gait belt. Falls bundle in place. ASsisted in ADLs. Complained of pain, due PRN pain meds given as prescribed. Explained to patient the indication to have her legs wrapped but patient requested to have it off for now until about lunch time. AM laxatives not given, pt with 2x stool overnight. To continue monitoring.
[2019-10-22 14:11] LABS: RENIN 1.344 ng/mL/hr (0.167-5.380)
[2019-10-22 14:36] VITALS: BP 145/57
[2019-10-22 19:12] VITALS: BP 136/51
--- NOTE | 2019-10-23 03:06 | NUR ---
ASSUMED PT CARE AROUND 1930. AXOX3. VSS. NO S/S ACUTE DISTRESS NOTED OR REPORTED AT THIS TIME. WILL CONT TO MONITOR FOR ANY CHANGES IN CONDITION.
[2019-10-23 05:17] LABS: HEMATOCRIT 27.1 % (37.0-47.0); HEMOGLOBIN 8.4 gm/dL (12.0-15.0); MCH 29.1 pg (26.0-34.0); MCHC 31.1 g/dL (28.0-37.0); MCV 93.6 fL (80.0-100.0); PLATELET COUNT 197 thou/uL (150-400); RDW 17.4 % (10.5-14.5); WBC 36.7 thou/uL (4.0-11.0)
[2019-10-23 05:51] LABS: CALCIUM 8.1 mg/dL (8.5-10.1); MAGNESIUM 1.9 mg/dL (1.8-2.4); POTASSIUM 3.6 mmol/L (3.5-5.1); TOTAL BILIRUBIN 0.5 mg/dL (<0.1-1.0)
[2019-10-23 07:00] LABS: ABSOLUTE NEUTROPHILS 33.4 thou/uL (1.4-8.2); ANISOCYTOSIS 1+; PLATELET ESTIMATE NORMAL
[2019-10-23 09:34] VITALS: BP 140/37
[2019-10-23 10:41] LABS: URINE BILIRUBIN NEGATIVE (Negative); URINE BLOOD TRACE (Negative); URINE CLARITY CLEAR; URINE COLOR YELLOW; URINE GLUCOSE-RANDOM* NEGATIVE (Negative); URINE KETONES NEGATIVE (Negative); URINE LEUKOCYTES-REFLEX NEGATIVE (Negative); URINE NITRITE-REFLEX NEGATIVE (Negative); URINE PROTEIN (DIPSTICK) TRACE (Negative); URINE SPECIFIC GRAVITY 1.015 (1.005-1.035); URINE UROBILINOGEN 0.2 E.U./dl (0.2-1.0)
[2019-10-23 15:00] VITALS: BP 154/36
[2019-10-23 19:07] VITALS: BP 129/48
--- NOTE | 2019-10-24 02:35 | NUR ---
PT CARE ASSUMED WITH PT IN BED AT 1900.PT IS A/O X4.PT HAS A LUIS MIDLINE .PT IS ACCUCHECK ACHS.PT IS UP WITH X1 ASSIST TO THE BSC.PT HAD SOME NASAL BLEEDING WHEN BLOWING NOSE.NURSE INFORMED MEDICINE ASSISTANT YVETTE AND SHE ORDERED SALINE SPRAY PRN.WILL CONTINUE TO MONITOR PER POC
[2019-10-24 05:26] LABS: HEMATOCRIT 26.7 % (37.0-47.0); HEMOGLOBIN 8.2 gm/dL (12.0-15.0); MCH 28.9 pg (26.0-34.0); MCHC 30.7 g/dL (28.0-37.0); MCV 94.3 fL (80.0-100.0); RBC 2.83 mil/uL (4.20-5.00); RDW 18.3 % (10.5-14.5); WBC 37.9 thou/uL (4.0-11.0)
[2019-10-24 07:15] VITALS: BP 155/57
[2019-10-24 11:10] LABS: ALDOSTERONE 1.2 ng/dL (0.0-30.0)
--- NOTE | 2019-10-24 14:38 | NUR ---
DISCHARGE NOTE: SW reviewed chart and spoke with nursing and attending physician. Pt is medically stable for discharge home today with HH services. SW met with pt at bedside to discuss discharge plan. [facility] delivered a portable O2 tank for pt to discharge home with. Pt states that she is agreeable with home Health services. SW provided options for HH agencies. No preference voiced. Pt in need of w/c van transportation home. SW confirmed pt's home address and phone number. JORGE received approval from Director of Case Mgmt for pt going via [facility]. train planner to arrange w/c van and to send HH referral to [facility] for review. Pt's PCP is Dr. Yvonne Ulloa. No additional SW needs identified at this time, but is available to assist should needs arise.
[2019-10-24 15:02] VITALS: BP 155/57
--- NOTE | 2019-10-24 15:27 | NUR ---
DISCHARGE ORDERS COMPLETED. HOME WITH HOME HEALTH SERVICES. PATIENT REFERRAL, DISCHARGE/HOME HEALTH ORDERS FAXED TO [facility] PER REQUEST. CALL PLACED TO [facility]. SPOKE WITH BISHNU VERAS. VERIFIED ALL RECEIVED. RITO TO FACILITATE PATIENTS HH NEEDS. PATIENT IN NEED OF TRANSPORTATION TO HOME. [facility] TO PROVIDE. TRANSPORTATION TIME SET UP FOR [id number] HOURS. UNIT AUDREY OJEDA NOTIFIED. UNIT SW AWARE.
[2019-10-24 16:51] VITALS: BP 155/57
--- NOTE | 2019-10-24 17:16 | NUR ---
PT UP WITH STB ASSIST. REMAINS ON 3-6L THIS SHIFT. NEEDS BASED ON ACTIVITY. PATIENT DISCHARGED HOME WITH HOME HEALTH. MIDLINE REMOVED PRIOR TO DISCHARGE. PATIENT AOX4. TRANSPORTED VIA WHEELCHAIR WITH MEDICAL TRANSPORT.
[2019-10-26 18:06] LABS: METANEPHRINE-PL < 10 pg/mL (0-62); NORMETANEPHRINE - PL 116 pg/mL (0-145)
== END 2019-10-24 17:18 | disposition home health service (06) | DRG 189 ==
LOC: ER 13:30 → ICU 18:32 → 4W 10-17 16:11
PROVIDERS: Emergency Medicine; Internal Medicine; Internal Medicine Gastroenterology; Internal Medicine Pulmonary Disease; Nurse Practitioner; ADMIT Hospitalist
PROC: 30233N1 Transfusion of Nonautologous Red Blood Cells into Peripheral Vein, Percutaneous Approach (ICD-10-PCS; principal; 2019-10-13)
PROC: 5A09357 Assistance with Respiratory Ventilation, Less than 24 Consecutive Hours, Continuous Positive Airway Pressure (ICD-10-PCS; 2019-10-14)
PROC: 5A09357 Assistance with Respiratory Ventilation, Less than 24 Consecutive Hours, Continuous Positive Airway Pressure (ICD-10-PCS; 2019-10-15)
PROC: 5A09357 Assistance with Respiratory Ventilation, Less than 24 Consecutive Hours, Continuous Positive Airway Pressure (ICD-10-PCS; 2019-10-16)
PROC: 5A09357 Assistance with Respiratory Ventilation, Less than 24 Consecutive Hours, Continuous Positive Airway Pressure (ICD-10-PCS; 2019-10-17)
PROC: 5A09357 Assistance with Respiratory Ventilation, Less than 24 Consecutive Hours, Continuous Positive Airway Pressure (ICD-10-PCS; 2019-10-18)
PROC: 5A09357 Assistance with Respiratory Ventilation, Less than 24 Consecutive Hours, Continuous Positive Airway Pressure (ICD-10-PCS; 2019-10-19)
PROC: 5A09357 Assistance with Respiratory Ventilation, Less than 24 Consecutive Hours, Continuous Positive Airway Pressure (ICD-10-PCS; 2019-10-20)
PROC: 5A09357 Assistance with Respiratory Ventilation, Less than 24 Consecutive Hours, Continuous Positive Airway Pressure (ICD-10-PCS; 2019-10-21)
PROC: 5A09357 Assistance with Respiratory Ventilation, Less than 24 Consecutive Hours, Continuous Positive Airway Pressure (ICD-10-PCS; 2019-10-22)
PROC: 5A09357 Assistance with Respiratory Ventilation, Less than 24 Consecutive Hours, Continuous Positive Airway Pressure (ICD-10-PCS; 2019-10-23)
PROC: 5A09357 Assistance with Respiratory Ventilation, Less than 24 Consecutive Hours, Continuous Positive Airway Pressure (ICD-10-PCS; 2019-10-24)
DX: J96.21 Acute and chronic respiratory failure with hypoxia (principal); J18.9 Pneumonia, unspecified organism; N17.9 Acute kidney failure, unspecified; K92.2 Gastrointestinal hemorrhage, unspecified; J44.1 Chronic obstructive pulmonary disease with (acute) exacerbation; I13.0 Hypertensive heart and chronic kidney disease with heart failure and stage 1 through stage 4 chronic kidney disease, or unspecified chronic kidney disease; I50.30 Unspecified diastolic (congestive) heart failure; J44.0 Chronic obstructive pulmonary disease with (acute) lower respiratory infection; I42.9 Cardiomyopathy, unspecified; J96.22 Acute and chronic respiratory failure with hypercapnia; K21.9 Gastro-esophageal reflux disease without esophagitis; M19.90 Unspecified osteoarthritis, unspecified site; N18.3 Chronic kidney disease, stage 3 (moderate); K56.41 Fecal impaction; F17.210 Nicotine dependence, cigarettes, uncomplicated; D64.9 Anemia, unspecified; I27.20 Pulmonary hypertension, unspecified; E27.8 Other specified disorders of adrenal gland; D72.829 Elevated white blood cell count, unspecified; K43.9 Ventral hernia without obstruction or gangrene; Z88.8 Allergy status to other drugs, medicaments and biological substances; Z79.899 Other long term (current) drug therapy; Z90.49 Acquired absence of other specified parts of digestive tract; Z82.5 Family history of asthma and other chronic lower respiratory diseases; Z86.711 Personal history of pulmonary embolism; Z86.010 Personal history of colon polyps; Z99.81 Dependence on supplemental oxygen
CPT/HCPCS: 10047; 10078; 10196; 27000

== ENCOUNTER 2019-10-24 23:22 | Inpatient (IN) | payer OTHER ==
[~2019-10-24] VITALS: Ht 167.6 cm; Wt 96.7 kg
[2019-10-24 23:24] VITALS: BP 139/49
[2019-10-24 23:58] LABS: HEMATOCRIT 26.1 % (37.0-47.0); HEMOGLOBIN 8.1 gm/dL (12.0-15.0); MCH 29.1 pg (26.0-34.0); MCHC 30.9 g/dL (28.0-37.0); MCV 94.2 fL (80.0-100.0); PLATELET COUNT 156 thou/uL (150-400); RBC 2.77 mil/uL (4.20-5.00); WBC 30.9 thou/uL (4.0-11.0)
[2019-10-24 23:58] LABS: BE(vivo) 2.8 mmol/L (-2 to +3); HCO3 28.2 mmol/L (22.0-26.0); PCO2 47.5 mmHg (35.0-45.0); PO2 70.5 mmHg (80.0-100.0); pH 7.391 (7.360-7.450); sO2 93.9 % (92.0-98.0)
[2019-10-25] VITALS (203 sets, daily range): BP systolic 79–163; BP diastolic 32–117
[2019-10-25 00:07] LABS: CALCIUM 7.9 mg/dL (8.5-10.1); CREATININE 1.2 mg/dL (0.6-1.0); POTASSIUM 3.3 mmol/L (3.5-5.1)
[2019-10-25 00:17] LABS: ALBUMIN 1.9 g/dL (3.4-5.0); MAGNESIUM 1.8 mg/dL (1.8-2.4); TOTAL BILIRUBIN 0.5 mg/dL (<0.1-1.0); TOTAL PROTEIN 6.5 g/dL (6.4-8.2)
[2019-10-25 00:23] LABS: TROPONIN-I 1.44 ng/mL (<0.06)
[2019-10-25 01:06] LABS: ABSOLUTE NEUTROPHILS 28.7 thou/uL (1.4-8.2)
[2019-10-25 01:07] LABS: ANISOCYTOSIS 1+; PLATELET ESTIMATE NORMAL; POIKILOCYTOSIS 1+
[2019-10-25 03:56] LABS: BE(vivo) -0.1 mmol/L (-2 to +3); PCO2 43.1 mmHg (35.0-45.0); PO2 64.2 mmHg (80.0-100.0); pH 7.382 (7.360-7.450); sO2 92.1 % (92.0-98.0)
--- NOTE | 2019-10-25 04:02 | NUR ---
PT ADMITTED AT 0300 TO ICU ROOM 248 CRITICAL CARE TELE STATUS. STATUS CHANGED TO ICU PER DR. YOUNG AT 0305 AND PT TRANSFERRED TO ICU ROOM 236. Placed on bipap 16/, 60% at 0309. Bipap pressures adjusted from original order of 6 due to pt status per respiratory therapy. ABG drawn at 0340 within acceptable parameters for this pt (long hx of COPD, O2 dependent at home) Pt extremely lethargic, responds to painful stimuli only. Monitor sinus rhythm with frequent PVC's and trigemeny.
--- NOTE | 2019-10-25 08:21 | EKG ---
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
--- NOTE | 2019-10-25 08:26 | NUR ---
chart review. pt just dc yesterday and brought back by ems rt pt not able to walk or move. ems stated house smelled of cat urine and mold. pt on bipap and unable to have verbal communication. cm left [facility] snf list for when son chu visit. cm called son x 2 number not in service is message get when call chu number. per chart pt lives in apartment, has home oxygen. 3 steps to enter up to apartment. had [facility] nurse visit 1 x month. rupal refused going skilled last hospital visit. will cont following as needed for dc needs.
--- NOTE | 2019-10-25 09:23 | 2DMMODE ---
[facility] [place] [address] 2 D/M-MODE ECHOCARDIOGRAM Name: BJ HODGES Room #: 236-P ADM IN M.R.#: [id number] Admission: 10/25/19 Attend Phys: Herb Clayton MD Discharge: Date of : 48 Report #: [id number] THIS REPORT FOR: cc: Yvonne Ulloa MD, Sequita MD Lammoglia, Francisco J. MD ~ APPROVED REPORT Study performed: 10/25/2019 08:45:41 EXAM: Limited 2D, Doppler, and color-flow Echocardiogram Patient Location: ICU Room #: 236 Status: routine BSA: 2.06 HR: 98 bpm BP: 115/49 mmHg Rhythm: Frequent PVCs. Other Information Study Quality: Adequate Technically limited study due to obesity, BiPap. Indications Limited follow up echo for short of breath, elevated troponin, readmit to hospital, CHF. (Complete echo done 10/17/19) Hx: Acute on chronic CHF, CAD, PE, COPD. 2D Dimensions RVDd: 38.15 mm IVSd: 12.08 (7-11mm) LVDd: 44.60 mm PWd: 10.56 (7-11mm) LVDs: 27.16 (25-40mm) Tricuspid Valve TR Peak Felix.: 3.60 m/s RAP Estimate: 10.00 mmHg TR Peak Gr.: 46.00 mmHg PA Pressure: 56.00 mmHg Left Ventricle The left ventricle is normal size. There is normal LV segmental wall motion. Borderline concentric left ventricular hypertrophy. Left ventricular systolic function is normal. LVEF is 65%. [facility] [address] [place] [address] 2 D/M-MODE ECHOCARDIOGRAM Name: BJ HODGES Room #: 236-P [facility]#: [id number] Admission: 10/25/19 Attend Phys: Herb Clayton MD Discharge: Date of : 48 Report #: [id number] Right Ventricle The right ventricle is normal size. The right ventricular systolic function is normal. Atria Left atrium is dilated. The right atrium size is normal. Aortic Valve The aortic valve is normal in structure; mildly calcified leaflets. Mild to moderate aortic regurgitation. There is no aortic valvular stenosis. Mitral Valve The mitral valve is normal in structure. Mild mitral regurgitation. Tricuspid Valve The tricuspid valve is normal in structure. Trace to mild tricuspid regurgitation. Estimated PAP is 55-60mmHg. Great Vessels IVC is dilated and collapses <50% with inspiration. Pericardium There is no pericardial effusion. <Conclusion> The left ventricle is normal size. LVEF is 65%. The aortic valve is normal in structure; mildly calcified leaflets. Mild to moderate aortic regurgitation. The mitral valve is normal in structure. Mild mitral regurgitation. The tricuspid valve is normal in structure. Trace to mild tricuspid regurgitation. Estimated PAP is 55-60mmHg. There is no pericardial effusion. <ELECTRONICALLY SIGNED> By: Fuentes Sexton MD 10/25/19922 2 2 Fuentes Sexton MD /INF
--- NOTE | 2019-10-25 10:00 | NUR ---
THIS RN REVIEWS POST PICC CHEST XRAY-IMPRESSION NOTES LEFT LUNG COLLAPSE. DR YOUNG PAGED STAT TO REVIEW CHEST XRAY- ORDERS TO GOT TO CT STAT AND CALL RESPIRATORY TO DO STAT BRONCH, GET CBC AND PLACE OG. REPIRATORY PAGED- PT TAKEN TO CT ON BIPAP- PT REMAINED STABLE. RETURNED FROM CT. DR YOUNG AT BEDSIDE TO DO BRONCH. 1325 PT INTUBATED D/T LOW OXYGEN STATS AND TAKEN BACK TO CT STAT. ORDERS TO START LEVOPHED AND PROPOFOL. TAKEN BACK TO CT STAT. SON DARCY CALLED AND UPDATED ON STATUS, DR YOUNG SPOKE WITH SON VIA TELEPHONE.
--- NOTE | 2019-10-25 10:51 | NUR ---
VASCULAR ACCESS TEAM CONSULTED FOR PICC LINE, PT'S LABS,MEDS,ORDER AND CONSENT VERIFIED. PT'S LUIS VESSELS TOO SMALL, EVELYN BASILIC WAS WIDELY PATENT WITH USG. 5FR TL POWER PICC TRIMMED TO 46CM INSERTED WITH DIFFICULTY DROPPING LINE. EXTERNAL 0CM. STAT CXR ORDERED.
--- NOTE | 2019-10-25 11:14 | NUR ---
WOUND CONSULT; WOUND CARE WAS CONSULTED FOR A RISK ASSESSMENT. THE PATIENT WAS READMITTED AFTER BEING D/C'D YESTERDAY. MEDICAL CONCERNS ARE; NSTEMI, ACUTE RESP FAILURE, PULMONARY HTN, CHF/COPD. THE PATIENT HAS HX OF PULMONARY EMBOLI. THIS PATIENT IS ON A LOWW AIRLOSS SURFACE AND THE PATIENT IS BEING TURNED ADDITIONALLY. THERE IS NO FEEDING TUBE AT THIS TIME. THE PATIENT IS 215 LBS AND 69 YEARS OLD. THE PATIENTS SKIN IS ASSESSED MINIMUM BID. WEDGES ARE IN USE WELL. BARRIER CREAM IS IN USE TO DECREASE FRICTION RISK. DISCUSSED WITH AUDREY
--- NOTE | 2019-10-25 11:40 | NUR ---
picc released for immediate use per protocol to Lo VENTURA
[2019-10-25 11:57] LABS: BE(vivo) 0.6 mmol/L (-2 to +3); HCO3 25.4 mmol/L (22.0-26.0); PCO2 41.2 mmHg (35.0-45.0); PO2 75.6 mmHg (80.0-100.0); pH 7.407 (7.360-7.450); sO2 95.3 % (92.0-98.0)
[2019-10-25 12:05] LABS: HEMATOCRIT 22.4 % (37.0-47.0); HEMOGLOBIN 6.9 gm/dL (12.0-15.0); RBC 2.38 mil/uL (4.20-5.00)
[2019-10-25 12:06] LABS: MCHC 30.7 g/dL (28.0-37.0); MCV 94.4 fL (80.0-100.0); RDW 18.3 % (10.5-14.5); WBC 26.4 thou/uL (4.0-11.0)
[2019-10-25 12:16] LABS: CALCIUM 8.2 mg/dL (8.5-10.1); CREATININE 1.1 mg/dL (0.6-1.0); POTASSIUM 3.8 mmol/L (3.5-5.1)
[2019-10-25 17:49] LABS: HEMATOCRIT 25.8 % (37.0-47.0); HEMOGLOBIN 8.2 gm/dL (12.0-15.0); MCH 29.6 pg (26.0-34.0); MCHC 31.6 g/dL (28.0-37.0); MCV 93.7 fL (80.0-100.0); PLATELET COUNT 172 thou/uL (150-400); RBC 2.76 mil/uL (4.20-5.00); RDW 17.4 % (10.5-14.5)
[2019-10-25 17:53] LABS: WBC 43.7 thou/uL (4.0-11.0)
[2019-10-25 20:41] LABS: BE(vivo) 3.6 mmol/L (-2 to +3); HCO3 28.6 mmol/L (22.0-26.0); PCO2 45.7 mmHg (35.0-45.0); PO2 71.5 mmHg (80.0-100.0); pH 7.415 (7.360-7.450); sO2 94.5 % (92.0-98.0)
[2019-10-26] VITALS (30 sets, daily range): BP systolic 104–143; BP diastolic 26–64
[2019-10-26 01:14] LABS: ABSOLUTE NEUTROPHILS 43.3 thou/uL (1.4-8.2); METAMYELOCYTES 1 %
[2019-10-26 01:15] LABS: ANISOCYTOSIS 2+; BURR CELLS 1+; LARGE PLATELETS FEW; PLATELET ESTIMATE NORMAL; POIKILOCYTOSIS 2+
[2019-10-26 05:33] LABS: PCO2 41.3 mmHg (35.0-45.0); pH 7.382 (7.360-7.450)
[2019-10-26 05:45] LABS: HEMATOCRIT 23.5 % (37.0-47.0); HEMOGLOBIN 7.6 gm/dL (12.0-15.0); MCH 29.7 pg (26.0-34.0); MCHC 32.3 g/dL (28.0-37.0); MCV 91.8 fL (80.0-100.0); RBC 2.56 mil/uL (4.20-5.00); RDW 17.2 % (10.5-14.5)
[2019-10-26 05:47] LABS: CALCIUM 7.8 mg/dL (8.5-10.1); POTASSIUM 3.3 mmol/L (3.5-5.1)
[2019-10-26 06:27] LABS: WBC 28.4 thou/uL (4.0-11.0)
--- NOTE | 2019-10-26 07:25 | NUR ---
Shift summary: Pt remains lightly sedated on vent. Follows commands. Nods appropriately. Bilateral soft wrist restraints in place. Pt impulsive. VSS. Afebrile. Levophed gtt weaned off. No vent changes this shift. ABG and portable chest XRay this am. Pt continues with hemoptysis. Hbg stable. No stool. BS active. Mauro with adequate uop. K+3.3, orders rec'd for replacment. Plan of care reviewed and updated as able.
--- NOTE | 2019-10-26 08:00 | NUR ---
pt placed on vent yesterday. cm spoke with son ciara [phone] via phone called. education rt [facility] snf list cm team left in room yesterday. no plan to dc today.
--- NOTE | 2019-10-26 19:09 | NUR ---
PT SON UPDATED ON POC, SON AGREES WITH BRONCHOSCOPY, NO QUESTIONS. WILL CALL TO INFORM SON OF OUTCOME AND STATUS. PT TOLERATED TRANSFER TO CT, VITAL SIGNS STABLE, TEST COMPLETE. CALLED SON TO REPORT EVENTS, SON NOT AVAILABLE-SPOKE WITH DAUGHTER IN LAW, SHE WILL GIVE UPDATE TO SON.
[2019-10-26 20:24] LABS: HEMATOCRIT 24.1 % (37.0-47.0); HEMOGLOBIN 7.5 gm/dL (12.0-15.0); MCH 29.2 pg (26.0-34.0); MCHC 31.2 g/dL (28.0-37.0); MCV 93.5 fL (80.0-100.0); RBC 2.58 mil/uL (4.20-5.00); RDW 17.6 % (10.5-14.5)
[2019-10-26 20:33] LABS: CALCIUM 7.9 mg/dL (8.5-10.1); CREATININE 1.1 mg/dL (0.6-1.0); POTASSIUM 3.3 mmol/L (3.5-5.1)
[2019-10-27] VITALS (24 sets, daily range): BP systolic 109–141; BP diastolic 36–64
[2019-10-27 04:56] LABS: HEMATOCRIT 23.1 % (37.0-47.0); HEMOGLOBIN 7.1 gm/dL (12.0-15.0); MCH 28.7 pg (26.0-34.0); MCHC 30.6 g/dL (28.0-37.0); MCV 93.7 fL (80.0-100.0); PLATELET COUNT 132 thou/uL (150-400); RBC 2.47 mil/uL (4.20-5.00); RDW 17.5 % (10.5-14.5); WBC 23.6 thou/uL (4.0-11.0)
[2019-10-27 05:21] LABS: BE(vivo) 3.4 mmol/L (-2 to +3); HCO3 28.3 mmol/L (22.0-26.0); PCO2 44.7 mmHg (35.0-45.0); PO2 85.7 mmHg (80.0-100.0); pH 7.419 (7.360-7.450); sO2 96.6 % (92.0-98.0)
[2019-10-27 05:55] LABS: ALBUMIN 1.6 g/dL (3.4-5.0); CALCIUM 7.2 mg/dL (8.5-10.1); POTASSIUM 3.7 mmol/L (3.5-5.1); TOTAL BILIRUBIN 0.4 mg/dL (<0.1-1.0); TOTAL PROTEIN 5.4 g/dL (6.4-8.2)
--- NOTE | 2019-10-27 07:33 | NUR ---
ASSUMED PT CARE AT 1900, VSS. PT LIGHTLY SEDATED BUT AROUSABLE, FOLLOWS COMMANDS, ABLE TO NOD YES AND NO TO QUESTIONS. PT IS VERY EDEMATOUS WITH THIRD SPACING. HUE RED SUCTIONED SPUTUM VOLUME REDUCED OVER THE COURSE OF THE NOC. PT HAD GOOD URINE OUTPUT OF >40ML/HR. PT IS STABLE, PAIN IS BEING MANAGED WITH FENTANYL, WILL CONTINUE TO MONITOR PER POC.
[2019-10-27 08:47] LABS: ABSOLUTE NEUTROPHILS 23.4 thou/uL (1.4-8.2); PLATELET ESTIMATE NORMAL
--- NOTE | 2019-10-27 10:31 | NUR ---
Nutrition: Pt npo x 2 days intubated in ICU. REC start Vital HP to reach 40 mL/hr with current propofol rate. Folate level low at 4.2. REC replacement.
--- NOTE | 2019-10-27 12:54 | NUR ---
ASSUMED CARE @ 0700 10/27/19, PT ASSESSMENTS AND VSS COMPLETE PER ICU PROTOCOL. SEDATION VACATION 07, PT ABLE TO FOLLOW COMMANDS. SON/ DPOA IS ADMITTED TO THE HOSPITAL, RN VERIFIES WITH TECHNICAL SYSTEMS ARCHITECT IF IT WAS APPROPRAITE TO GET TELEPHONE CONSENT WHILE ADMITTED TO THE HOSPITAL, CONSENT ACQUIRED. PROGRESSING TOWARDS POC.
--- NOTE | 2019-10-27 19:45 | NUR ---
1945: SEDATION VACATION PERFORMED ON PATIENT. PROPOFOL TURNED OFF. PATIENT ABLE TO FOLLOW COMMANDS, SQUEEZE HANDS. DENIES PAIN. NODED YES OR NO FOR QUESTIONS. VSS DURING SEDATION VACATION.
--- NOTE | 2019-10-27 20:03 | NUR ---
ASSUMED CARE @ 0700 10/27/19, PT ASSESSMENTS AND VSS COMPLETE PER ICU PROTOCOL. THORACENTESIS DONE TODY, NO FLUIDS OUT. PER DR DIAZ, PT HAS HX OF LUNG MASS IN LEFT SIDE, DR WEINBERG CONSULTED. UO BLOOD TINGED AND DECREASING, DR DIAZ AWARE, NO NEW ORDERS RECIEVED. PT PROGRESSING TOWARDS POC.
[2019-10-28] VITALS (24 sets, daily range): BP systolic 116–156; BP diastolic 47–68
[2019-10-28 05:48] LABS: BE(vivo) 0.5 mmol/L (-2 to +3); HCO3 24.3 mmol/L (22.0-26.0); PCO2 35.7 mmHg (35.0-45.0); PO2 109.9 mmHg (80.0-100.0); sO2 98.2 % (92.0-98.0)
[2019-10-28 06:03] LABS: HEMATOCRIT 23.2 % (37.0-47.0); HEMOGLOBIN 7.2 gm/dL (12.0-15.0); MCH 29.1 pg (26.0-34.0); MCHC 30.9 g/dL (28.0-37.0); MCV 94.4 fL (80.0-100.0); PLATELET COUNT 127 thou/uL (150-400); RBC 2.46 mil/uL (4.20-5.00); RDW 17.2 % (10.5-14.5); WBC 26.5 thou/uL (4.0-11.0)
[2019-10-28 06:24] LABS: ALBUMIN 1.6 g/dL (3.4-5.0); CALCIUM 7.5 mg/dL (8.5-10.1); CREATININE 0.9 mg/dL (0.6-1.0); POTASSIUM 3.5 mmol/L (3.5-5.1); TOTAL BILIRUBIN 0.5 mg/dL (<0.1-1.0); TOTAL PROTEIN 5.6 g/dL (6.4-8.2)
--- NOTE | 2019-10-28 06:45 | NUR ---
PT STABLE DURING THE NIGHT. INTUBATED ON VENT. TOLERATING VENT SETIING. AEBRILE. DENIED PAIN. URINE OUTPUT GREATER THAN 30CC/HR. WILL CONTINUE TO MONITOR.
--- NOTE | 2019-10-28 08:00 | NUR ---
pt remains on vent. feedings on hold per bedside nurse rt oncology consulted. no family at bedside. will cont following as needed for dc needs.
[2019-10-28 08:03] LABS: ABSOLUTE NEUTROPHILS 24.6 thou/uL (1.4-8.2); ANISOCYTOSIS 1+
--- NOTE | 2019-10-28 10:07 | PATH ---
[facility] [address] [place] [address] PATHOLOGY RPT PROCEDURE Name: CHRISTINE HODGES Christopher Room #: 236-P [facility] IN M.R.#: [id number] Admission: 10/25/19 Date of : 48 Discharge: Report #: [id number] Path Case #: [id number] [facility] Accession Number: [id number] . 01 Material submitted: . bronchus - BRONCHOSCOPY SAMPLE, BLOOD OF CLOT . 01 Clinical history: . Altered mental state, hypoxia, COPD, respiratory failure . 02 Diagnosis: Blood clot: - Fibrin and elements of peripheral blood, consistent with blood clot. - No mucosal/epithelial or submucosal elements present for evaluation. (IUV:tobacco sprayer; 10/27/2019) MBR 10/27/2019 1541 Local . 02 Electronically signed: . Blanquita Guzman MD, Pathologist NPI- [id number] . 01 Gross description: . The specimen is received in formalin, labeled "Grika, Christine, blood clot" and "bronchoscopy sample" per requisition. Received is blood clot measuring 1.3 x 1.3 x 0.5 cm which is entirely submitted in A1. (SDY; 10/26/2019) SYU/SYU 10/27/2019 1540 Local . 02 Pathologist provided ICD-10: R41.82, R09.02, J44.9, J96.90 . 02 CPT . 090260 Specimen Comment: A courtesy copy of this report has been sent to [phone] Specimen Comment: Report sent to Specimen Comment: A duplicate report has been generated due to demographic updates. Performed at: [address], [place] [id number] MD Krishan Flores MD Phone: [phone] Performed at: [address] [id number] MD Blanquita Guzman MD Phone: [phone]
--- NOTE | 2019-10-28 18:10 | NUR ---
PT EASILY AROUSABLE ON 30 MCG OF PROPOFOL. NODS HEAD APPROPRIATLY TO YES/NO QUESTIONS. HAS BEEN NSR WITH PVC'S INTERMITTENLY. CPAP TRAIL FROM 0845 TO 0848, PT'S RESPIRATIONS IN THE 40'S WITH INCREASED PVC'S. ADEQUATE URINE OUTPUT, NO BM. PT PROGRESSIVELY BECOMING MORE FEBRILE, HIGHEST TEMPRATURE RECORDED WAS 99.3 F. TUBE FEED WAS NOT STARTED DUE TO HEM/ONC NOT SIGNING OFF. PT NOT PROGRESSING TOWARDS PLAN OF CARE EVIDENCE BY FAILED CPAP TRIAL.
[2019-10-29] VITALS (26 sets, daily range): BP systolic 124–162; BP diastolic 48–64
[2019-10-29 05:19] LABS: HCO3 27.5 mmol/L (22.0-26.0); PCO2 42.1 mmHg (35.0-45.0); PO2 80.7 mmHg (80.0-100.0); pH 7.433 (7.360-7.450); sO2 96.2 % (92.0-98.0)
[2019-10-29 06:19] LABS: HEMOGLOBIN 6.7 gm/dL (12.0-15.0); WBC 28.3 thou/uL (4.0-11.0)
[2019-10-29 06:21] LABS: HEMATOCRIT 21.3 % (37.0-47.0); MCH 29.7 pg (26.0-34.0); MCHC 31.6 g/dL (28.0-37.0); MCV 94.3 fL (80.0-100.0); PLATELET COUNT 104 thou/uL (150-400); RBC 2.26 mil/uL (4.20-5.00); RDW 17.5 % (10.5-14.5)
--- NOTE | 2019-10-29 06:36 | NUR ---
PATIENT HGB DROPPED FROM 7.2 YESTERDAY TO 6.7 THIS AM. FAITH MORALES NOTIFIED. NO NEW ORDERS OBTAINED. STILL NOT ABLE TO COLLECT OCCULT STOOL DUE TO PATIENT NOT HAVING BM. WILL PASS ON TO DAYSHIFT RN.
[2019-10-29 06:49] LABS: ALBUMIN 1.9 g/dL (3.4-5.0); CALCIUM 8.7 mg/dL (8.5-10.1); CREATININE 0.9 mg/dL (0.6-1.0); POTASSIUM 3.6 mmol/L (3.5-5.1); TOTAL BILIRUBIN 0.5 mg/dL (<0.1-1.0); TOTAL PROTEIN 5.6 g/dL (6.4-8.2)
--- NOTE | 2019-10-29 07:35 | NUR ---
AT APROX 0630 ON 10/29, RT ATTEMPTED CPAP TRAIL. WIHIN 30 SECONDS PATIENTS RR WAS IN THE 40'S. RT STOPPED THE TRAIL AND RESUMED PREVIOUSLY DOCUMENTED VENT SETTINGS.
[2019-10-29 08:36] LABS: ABSOLUTE NEUTROPHILS 27.7 thou/uL (1.4-8.2); PLATELET ESTIMATE SLIGHTLY DECREASED
[2019-10-29 08:37] LABS: ANISOCYTOSIS 1+
[2019-10-29 08:38] LABS: MACROCYTES 1+; MICROCYTES 1+
--- NOTE | 2019-10-29 19:26 | NUR ---
ASSESSMENTS AND INTERVENTIONS DOCCUMENTED. PATIENT RESTING THROUGHOUT SHIFT. PATIENT REMAINS ON PROPOFOL GTT. FAMILY UPDATED ABOUT POC. 1 UNIT OF PRBC INFUSED. PATIENT PROGRESSING TOWARDS GOALS EVIDENCE BY STARTING CPAP TRIALS.
[2019-10-30] VITALS (24 sets, daily range): BP systolic 94–153; BP diastolic 46–67
[2019-10-30 05:01] LABS: BE(vivo) 2.6 mmol/L (-2 to +3); HCO3 27.5 mmol/L (22.0-26.0); PCO2 43.9 mmHg (35.0-45.0); PO2 75.1 mmHg (80.0-100.0); pH 7.415 (7.360-7.450); sO2 95.2 % (92.0-98.0)
[2019-10-30 05:34] LABS: MCH 28.9 pg (26.0-34.0); MCHC 30.9 g/dL (28.0-37.0); MCV 93.7 fL (80.0-100.0); PLATELET COUNT 108 thou/uL (150-400); RBC 2.77 mil/uL (4.20-5.00); RDW 17.5 % (10.5-14.5); WBC 37.1 thou/uL (4.0-11.0)
[2019-10-30 05:55] LABS: ALBUMIN 1.8 g/dL (3.4-5.0); CALCIUM 8.2 mg/dL (8.5-10.1); CREATININE 0.9 mg/dL (0.6-1.0); POTASSIUM 3.7 mmol/L (3.5-5.1); TOTAL BILIRUBIN 0.8 mg/dL (<0.1-1.0); TOTAL PROTEIN 5.6 g/dL (6.4-8.2)
--- NOTE | 2019-10-30 07:45 | NUR ---
RN ASSUMED CARE OF PATIENT AT 0700. FAMILY CALLING WANTING AN UPDATE ON THE PATIENT'S STATUS. RN WANTING TO ASNWER QUESTION, BUT MARCOS (DAUGHTER IN LAW) REQUESTING TO SPEAK WITH A PHYSICIAN. RN EXPLAINED THAT THE ROUNDING PHYSICIANS WILL BE TOLD TO CALL HER WHEN THEY ARE ON THE UNIT. 0744, MARCOS CALLING BACK REQUESTING TO SPEAK WITH MAPLE SUGAR MAKER. ROBERTO MAPLE SUGAR MAKER SPOKE WITH HER AND INFORMED HER THAT WHEN THE DR ROUNDS SHE WILL BE CALLED. FAMILY WANTING TO ASSESS PATIENT WHILE OFF OF SEDATION. DR. DIAZ ON UNIT AT 0747, DR DIAZ INFORMED OF SITUATION AND IS PLANNING ON MEETING WITH FAMILY TO DISCUSS PATIENT'S CURRENT STATUS.
[2019-10-30 10:24] LABS: ABSOLUTE NEUTROPHILS 34.1 thou/uL (1.4-8.2); ANISOCYTOSIS 1+; METAMYELOCYTES 1 %
[2019-10-31] VITALS (24 sets, daily range): BP systolic 91–154; BP diastolic 51–69
[2019-10-31 05:34] LABS: HEMATOCRIT 25.8 % (37.0-47.0); MCH 29.1 pg (26.0-34.0); MCV 93.9 fL (80.0-100.0); RBC 2.75 mil/uL (4.20-5.00); RDW 17.2 % (10.5-14.5); WBC 32.8 thou/uL (4.0-11.0)
--- NOTE | 2019-10-31 10:54 | NUR ---
CPAP TRIAL BEGAN AT 1053. PATIENT FAILED WITHIN 1 MNINUTE. PATIENT RESPIRATIONS UP IN THE 40'S WITHIN 1 MINUTE OF BEING ON CPAP MODE. PATIENT TURNED BACK TO AC.
--- NOTE | 2019-10-31 11:07 | PATH ---
[facility] [address] [place] [address] PATHOLOGY RPT PROCEDURE Name: BJ HODGES Room #: 236-P ADM IN ..#: [id number] Admission: 10/25/19 Date of : 48 Discharge: Report #: [id number] Path Case #: [id number] Note LCA Accession Number: [id number] TESTS RESULT FLAG UNITS REF RANGE LAB Clinician Provided Cytology Information No. of containers..01 Slide Source: 01 L MAIN STEM CYTOBRUS DIAGNOSIS: 02 LEFT MAIN STEM BRONCHUS BRUSHING SMEARS NEGATIVE FOR MALIGNANT EPITHELIAL CELLS. REACTIVE BRONCHIAL CELLS ARE PRESENT. RED BLOOD CELLS ARE PRESENT. PULMONARY MACROPHAGES (DUST CELLS) ARE PRESENT. EXTENSIVE AIR-DRYING ARTIFACT LIMITING INTERPRETATION. Pathologist ICD10: 02 J44.9 Signed out by: 02 Blanquita Guzman MD, Pathologist NPI- [id number] Performed by: Shivam Saucedo, Burr Bench Operator ([facility]) Gross description: 01 2 FX /LCS 10/27/2019 1238 Local FLAG LEGEND: L-Low Normal,H-High Normal,LL-Alert Low,HH-Alert High <-Panic Low,>-Panic High,A-Abnormal,AA-Critical Abnormal Performed at: [address] [place] [address] Krishan Flores MD, [address] [address] Blanquita Guzman MD, Specimen Comment: A courtesy copy of this report has been sent to [phone] Specimen Comment: Report sent to Specimen Comment: A duplicate report has been generated due to demographic updates. Performed at: [address], [place], [place] [id number] MD Krishan Flores MD Phone: [phone]
--- NOTE | 2019-10-31 11:30 | NUR ---
pt up in bed, cont on vent. possible will get to cpap try. pt son is here on other floor. will cont following as needed for dcp.
[2019-10-31 20:47] LABS: APTT 22.9 Seconds (24.5-32.8); INR 1.1; PROTIME 11.4 Seconds (9.3-11.4)
[2019-11-01] VITALS (59 sets, daily range): BP systolic 104–190; BP diastolic 44–87
[2019-11-01 05:38] LABS: HEMATOCRIT 26.9 % (37.0-47.0); HEMOGLOBIN 8.1 gm/dL (12.0-15.0); MCH 28.6 pg (26.0-34.0); MCHC 30.3 g/dL (28.0-37.0); MCV 94.5 fL (80.0-100.0); RBC 2.85 mil/uL (4.20-5.00); RDW 17.3 % (10.5-14.5); WBC 32.8 thou/uL (4.0-11.0)
[2019-11-01 05:42] LABS: CALCIUM 8.2 mg/dL (8.5-10.1); CREATININE 0.8 mg/dL (0.6-1.0); POTASSIUM 3.2 mmol/L (3.5-5.1)
--- NOTE | 2019-11-01 19:17 | NUR ---
PT INTUBATED AND SEDATED ON VENT. ASSESSMENTS AND INTERVENTIONS CHARTED. BRONCH DONE BY AUTO TRANSPORT DRIVER AT BEDSIDE, BIOPSY SENT TO LAB.PT NOT PROGRESSING TOWARDS PLAN OF CARE. SEDATION VACATION FROM [id number], PT HAD PURPOSFUL MOVEMENT. POTASSIUM REPLACED PER PROTOCAL, NOW WNL. WILL CONTINUE TO MONITOR.
[2019-11-02] VITALS (65 sets, daily range): BP systolic 125–176; BP diastolic 44–87
[2019-11-02 05:20] LABS: HEMATOCRIT 25.8 % (37.0-47.0); HEMOGLOBIN 7.9 gm/dL (12.0-15.0); MCHC 30.5 g/dL (28.0-37.0); MCV 95.1 fL (80.0-100.0); RBC 2.71 mil/uL (4.20-5.00); RDW 17.7 % (10.5-14.5); WBC 35.9 thou/uL (4.0-11.0)
[2019-11-02 05:33] LABS: CALCIUM 8.3 mg/dL (8.5-10.1); CREATININE 0.9 mg/dL (0.6-1.0)
--- NOTE | 2019-11-02 13:20 | NUR ---
PT INTUBATED AND SEDATED. VSS, PROFOFOL GTT 4OML/HR. PT DID WELL ON SEDATION VACATION. SHE DID FOLOOW SOME COMMANDS. PT DID NOT DO WELL ON CPAP TRAIL, SHE ONLY LASTED ONE MIN. PT DOES NOT APPEAR TO BE ANY PAIN. SANTOS TO DD. PT TOLERATING TUBE FEEDING WELL. WILL CONTINUE TO MONITOR
--- NOTE | 2019-11-02 14:06 | NUR ---
WEANING TRIAL TODAY, PLACED ON CPAP AT 1430. SEDATION OFF.
--- NOTE | 2019-11-02 14:36 | NUR ---
tasha called son at [phone] not accepting calls. called [phone] which is his pablo lazo and he answered " no i told them to take that 726 # off, have not have that is years, my number is the best way to reach me, sometimes don't have ringer on my phone on so miss call. will be up in few days said to rest"/ciara. tasha sent message to dr carlita lazo to reach ciara at [phone].
--- NOTE | 2019-11-02 16:07 | PATH ---
[facility] [address] [facility] [place] [address] PATHOLOGY RPT PROCEDURE Name: BJ HODGES Room #: 236-P ADM IN .R.#: [id number] Admission: 10/25/19 Date of : 48 Discharge: Report #: [id number] Path Case #: [id number] Note LCA Accession Number: [id number] TESTS RESULT FLAG UNITS REF RANGE LAB Clinician Provided Cytology Information No. of containers..01 Other (Miscellaneous) Source: BAL LEFT MAIN STEM DIAGNOSIS: BAL LEFT MAIN STEM NEGATIVE FOR MALIGNANT CELLS. NORMAL BRONCHIAL CELLS ARE PRESENT. PULMONARY MACROPHAGES (DUST CELLS) ARE PRESENT. Pathologist ICD10: 02 J44.9 Signed out by: 02 Blanquita Guzman MD, Pathologist NPI- [id number] Performed by: 01 Clarice Amaya Rug Cutter Helper ([facility]) Gross description: 01 3ML, RED, 1 TP /LCS 10/26/2019 1403 Local FLAG LEGEND: L-Low Normal,H-High Normal,LL-Alert Low,HH-Alert High <-Panic Low,>-Panic High,A-Abnormal,AA-Critical Abnormal Performed at: [address] [place] [address] Krishan Flores MD, [address] [address] Blanquita Guzman MD, Specimen Comment: A courtesy copy of this report has been sent to [phone] Specimen Comment: Report sent to Specimen Comment: A duplicate report has been generated due to demographic updates. Performed at: [address], [place], [place] [id number] MD Krishan Flores MD Phone: [phone]
[2019-11-03] VITALS (47 sets, daily range): BP systolic 112–170; BP diastolic 45–64
[2019-11-03 05:54] LABS: HEMATOCRIT 25.8 % (37.0-47.0); HEMOGLOBIN 7.8 gm/dL (12.0-15.0); MCH 28.7 pg (26.0-34.0); MCV 95.4 fL (80.0-100.0); RBC 2.71 mil/uL (4.20-5.00); RDW 17.3 % (10.5-14.5); WBC 38.5 thou/uL (4.0-11.0)
[2019-11-03 06:10] LABS: CALCIUM 8.3 mg/dL (8.5-10.1); POTASSIUM 4.1 mmol/L (3.5-5.1)
--- NOTE | 2019-11-03 07:29 | NUR ---
ASSUMED PT CARE AT 1900. PT INTUBATED AND SEDATED ON PROPOFOL, DOWN TO 25. SEDATION VACATION DONE AT THE START OF SHIFT, PT FOLLOWS COMMANDS AND TOLRATED INTERVENION WELL. PT IS THIRD SPACING AND QUITE EDEMATOUS. BILATEAL FOREARMS SKIN TEARS WRAPPED WITH KERLIX. U/O>30ML/HR. TOLERATING TUBE FEEDING, WILL CONTINUE TO MONITO PER POC.
--- NOTE | 2019-11-03 18:23 | NUR ---
ASSUMED CARE @ 0700 11/03/19, PT ASSESSMENTS AND VSS COMPLETE PER ICU PROTOCOL. DR YOUNG HERE TO ROUND DURING SHIFT, RN EXPRESSES ABOUT HOW EDEMATOUS PT IS AND HTN, NEW ORDERS RECIEVED. DR CRUMP PUTS AN ORDER TO ASK DR PALAFOX ABOUT BIOPSY OF THE ADRENAL MASS, DR PALAFOX PAGED, DR FELDER COVERING, NEW ORDERS RECIEVED. BENE PROTEIN RECOMMENDED PER CARPENTER ASSEMBLER. PT PROGRESSING TOWARDS PLAN OF CARE.
[2019-11-04] VITALS (14 sets, daily range): BP systolic 105–128; BP diastolic 40–55
[2019-11-04 05:36] LABS: HEMATOCRIT 25.8 % (37.0-47.0); MCH 29.1 pg (26.0-34.0)
[2019-11-04 05:42] LABS: HEMOGLOBIN 7.8 gm/dL (12.0-15.0); MCHC 30.3 g/dL (28.0-37.0); MCV 95.8 fL (80.0-100.0); RBC 2.69 mil/uL (4.20-5.00); RDW 17.5 % (10.5-14.5); WBC 42.6 thou/uL (4.0-11.0)
[2019-11-04 05:53] LABS: CALCIUM 8.8 mg/dL (8.5-10.1); POTASSIUM 3.9 mmol/L (3.5-5.1)
--- NOTE | 2019-11-04 06:52 | NUR ---
PATIENT ON LIGHT SEDATION, ABLE TO FOLLOW SIMPLE COMMANDS, TOLERATING TUBE FEEDING AT GOAL RATE, INCLUDING BENEFIBER WITH 200 WATER FLUSHES. SANTOS GREATER THAN 30 ML/HR OUTPUT. SPOKE WITH DR. DIMAS ABOUT WBC COUNT AND ADRENAL BIOPSY PLANNED FOR TODAY. NO SIGN OF ACUTE DISTRESS NOTED AT THIS TIME. WILL CONTINUE TO MONITOR.
--- NOTE | 2019-11-04 08:57 | NUR ---
DR. CRUMP IN PATIENT ROOM AROUND 0830. PATIENT ON PROPOFOL GTT, POC DISCUSSED WITH RN.
--- NOTE | 2019-11-04 09:38 | NUR ---
Spoke with Dr. Santana, interventional radiologist. States the adrenal biopsy needs to be done when the patient is extubated and more stable. Attempted to call Dr. Haylee hackett. Phone number in physician privileges not a working number. Will notify ICU.
[2019-11-04 09:45] LABS: APTT 23.6 Seconds (24.5-32.8); INR 1.2; PROTIME 12.4 Seconds (9.3-11.4)
--- NOTE | 2019-11-04 09:50 | NUR ---
AUDREY Bustos notified of cancellation of adrenal biopsy per Dr. Santana.
--- NOTE | 2019-11-04 11:26 | PATH ---
[facility] [address] [place] [address] PATHOLOGY RPT PROCEDURE Name: BJ HODGES Room #: 236-P ADM IN .R.#: [id number] Admission: 10/25/19 Date of : 48 Discharge: Report #: [id number] Path Case #: [id number] Note LCA Accession Number: [id number] TESTS RESULT FLAG UNITS REF RANGE LAB Source: 01 L MAIN STEM BRUSHTIP DIAGNOSIS: 02 L MAIN STEM BRUSHTIP NEGATIVE FOR MALIGNANT EPITHELIAL CELLS. REACTIVE BRONCHIAL CELLS ARE PRESENT. RED BLOOD CELLS ARE PRESENT. PULMONARY MACROPHAGES (DUST CELLS) ARE PRESENT. Pathologist ICD10: 02 J44.9 Signed out by: Blanquita Guzman MD, Pathologist NPI- [id number] Performed by: Michelle Saucedo, Director Recreation ([facility]) Gross description: 01 1 TP /AMAYA 10/27/2019 1240 Local FLAG LEGEND: L-Low Normal,H-High Normal,LL-Alert Low,HH-Alert High <-Panic Low,>-Panic High,A-Abnormal,AA-Critical Abnormal Performed at: [address] [place] [address] Krishan Flores MD, [address] [address] Blanquita Guzman MD, Performed at: [address], [place], [place] [id number] MD Krishan Flores MD Phone: [phone]
--- NOTE | 2019-11-04 12:07 | PATH ---
[facility] [place] [address] [place] [address] PATHOLOGY RPT PROCEDURE Name: BJ HODGES Room #: 236-P ADM IN M.R.#: [id number] Admission: 10/25/19 Date of : 48 Discharge: Report #: [id number] Path Case #: [id number] Note LCA Accession Number: [id number] TESTS RESULT FLAG UNITS REF RANGE LAB Clinician Provided Cytology Information No. of containers..01 Other (Miscellaneous) Source: [A] 01 BRONCH WASH LLL DIAGNOSIS: [A] 02 BRONCH WASH LLL POSITIVE FOR MALIGNANT CELLS. ADENOCARCINOMA IS PRESENT. Comment: The concurrent biopsy tissue, [id number], part B showed an adenocarcinoma, supported by immunohistochemical stains on the biopsy tissue (please refer to a separate report). [place]: Dr. Susy Kim. Dr. John Cevallos was notified at 10:40 AM on 11/04/2019. Pathologist ICD10: 02 C34.92 Signed out by: 02 Blanquita Guzman MD, Pathologist NPI- [id number] Performed by: Clarice Amaya, Siebel Architect ([facility]) Gross description: 01 20ML, CLOUDY RED BRWN, 1 TP /LCS 11/02/2019 1311 Local FLAG LEGEND: L-Low Normal,H-High Normal,LL-Alert Low,HH-Alert High <-Panic Low,>-Panic High,A-Abnormal,AA-Critical Abnormal Performed at: [address] [place] [address] Krishan Flores MD, [address] [address] Blanquita Guzman MD, Performed at: [address], [place], [place] [id number] MD Krishan Flores MD Phone: [phone]
--- NOTE | 2019-11-04 14:03 | NUR ---
FOLLOWING FOR DC PLANNING. VM THIS AM FROM SON DARCY AND D-I-L MARCOS CARROLL STATING THEY WANT PT TRANSFERRED TO ANOTHER HOSPTIAL, ANY PLACE BUT [facility] OR [place]. UPDATED DR. CRUMP AROUND 0830 AND HE CONFIRMED AT 1100 [facility] HE HAD SPOKEN WITH ROMELIA AND PROVIDED CLINICAL UPDATE AND ANSWERED THEIR QUESTIONS TO BEST OF HIS ABILITY. SPOKE BY PHONE WITH ROMELIA AT 1400 AFTER CONTACTING [facility] AND [facility] TRANSFER CENTERS. REVIEWED TRANSFER PROCESS AND ARE AGREEABLE TO ANY [facility] ALTHOUGH PREFER EAST OR SOUTH, AND OK WITH [facility] OR [facility]. MARCOS'S SPEECH SEEMED ALITTLE SLURRED ON PHONE AND DARCY AND MARCOS TALK OVER EACH OTHER. [facility] CURRENTLY HAS INSURANCE INFO AND FACE SHEET AND DR. CRUMP'S CONTACT # AND WILL NOTIFY ME WITH DECISION. [facility] TRANSFER [facility]ENTER ([facility]) HAS FACESHEET, COPY OF INSURANCE CARDS, DR. CRUMP'S CONTACT AND CLINICAL INFO. CONSULTING TECHNICAL MANAGER UPDATED. DR. YOUNG UPDATED AND HAS INDICATED PT IS STABLE FOR AMBULANCE TRANSFER IF ACCFEPTED AND CAN BE BAGGED IN TRANSPORT.
--- NOTE | 2019-11-04 16:57 | NUR ---
TRANSFER FORM COMPLETED AND PHONE CONSENT OBTAINED FROM ROMELIA HODGES BY 2 RNS.
--- NOTE | 2019-11-04 18:07 | PATH ---
[facility] [place] [address] PATHOLOGY RPT PROCEDURE Name: CHRISTINE HODGES Christopher Room #: 236-P ADM IN M.R.#: [id number] Admission: 10/25/19 Date of : 48 Discharge: Report #: [id number] Path Case #: [id number] LCA Accession Number: [id number] . 01 Material submitted: . PART A: lung - BLOOD CLOT FROM LLL. Modifiers: left, lower PART B: lung - TBNA LLL. Modifiers: left, lower . 01 Clinical history: . Altered mental status, hypoxia, COPD, respiratory failure . 02 Diagnosis: A. Blood clot left lower lobe, removal: - Fragments of fibrin along with detached reactive bronchial epithelial cells. - Negative for malignancy. . B. Lung, left lower lobe, TBNA/biopsy: - SCANT FRAGMENTS OF MODERATELY DIFFERENTIATED ADENOCARCINOMA (PLEASE SEE COMMENT). . (IUV:shabnam; 11/04/2019) MBR 11/04/2019 1233 Local . 02 Comment: B. Examination shows scant to rare detached malignant epithelial cells without definitive features suggestive of squamous cell carcinoma or adenocarcinoma. Multiple properly controlled immunohistochemical stains are performed on block B1. The tumor shows strong nuclear reactivity with TTF-1 and strong granular reactivity with Napsin A. P40 and p63 are nonreactive arguing against a squamous cell carcinoma. . Co-review: Dr. Susy Kim. . Findings of this case are relayed to Dr. John Cevallos at 10:40 a.m. on 11/04/2019. . (IUV:construction driller; 11/04/2019) . 02 Electronically signed: . Blanquita Guzman MD, Pathologist NPI- [id number] . 01 Gross description: . A. The specimen is received in formalin, labeled "Christine Hodges, blood clot LLL" and consists of soft meyers-brown material measuring 2.5 x 1.5 x 0.4 cm which is entirely [place] [address] PATHOLOGY RPT PROCEDURE Name: CHRISTINE HODGES Room #: 236-P [facility] IN ..#: [id number] Admission: 10/25/19 Date of : 48 Discharge: Report #: [id number] Path Case #: [id number] . B. The specimen is received in formalin, labeled "Elisha, Christine, TBNA LLL" and consists of a delicate meyers needle cores and their fragments measuring 0.8 x 0.5 x 0.1 cm in aggregate which are entirely submitted in B1. (SDY; 11/02/2019) SYU/SYU 11/02/2019 1459 Local . 02 Pathologist provided ICD-10: C34.32 . 02 CPT . 554446, 534506, J24104, R04691 Specimen Comment: A courtesy copy of this report has been sent to [phone] Specimen Comment: Report sent to / DR BARAKAT Performed at: [address], [place], [place] [id number] MD Krishan Flores MD Phone: [phone] Performed at: [address] [id number] MD Blanquita Guzman MD Phone: [phone]
--- NOTE | 2019-11-04 18:23 | NUR ---
JORGE contacted by nursing regarding transportation to [facility]. [facility] scheduled for 1644. JORGE contacted [facility]. Ambulance crew is en route to [facility] for pt to transfer to [facility]. Pt's nurse updated. Available to assist as needed.
--- NOTE | 2019-11-04 18:53 | NUR ---
[facility] PICKED PATIENT UP AT 1852. VENT DISCONNECTED AND [facility] BAGGING PATIENT. PATIENT STILL ON PROPOFOL GTT @ 20 AND LEVOPHED GTT @4. PATIENT STABLE. PACKED GIVEN TO [facility]. FAMILY NOTIFIED ABOUT PATIENT TRANSFER WITH [facility]. NO MAJOR CHANGES THROUGH OUT SHIFT. PATIENT TO TRANSFER TO [facility] ICU BED 30.
[2019-11-04 21:11] LABS: HISTOPLASMA MYCELIAL-CF Negative (Neg:<1:2)
[2019-11-05 17:07] LABS: HISTOPLASMA MYCELIAL-ID Negative (Negative)
--- NOTE | 2019-11-07 10:43 | PATH ---
[facility] [address] [place] [address] PATHOLOGY RPT PROCEDURE Name: BJ HODGES Room #: 236-P [facility] IN M.R.#: [id number] Admission: 10/25/19 Date of : 48 Discharge: 11/04/19 Report #: [id number] Path Case #: [id number] Note LCA Accession Number: [id number] TESTS RESULT FLAG UNITS REF RANGE LAB Clinician Provided Cytology Information No. of containers..01 Slide Source: [A] 01 LLL TBNA DIAGNOSIS: [A] 02 LLL TBNA POSITIVE FOR MALIGNANT CELLS. ADENOCARCINOMA IS PRESENT. ABUNDANT RED BLOOD CELLS ARE PRESENT. INTERPRETATION PARTIALLY OBSCURED BY BLOOD AND AIRDRYING ARTIFACT. Comment: The concurrent biopsy tissue showed an adenocarcinoma which was supported by the immunohistochemical stains performed on that biopsy tissue. Please refer to a separate report for complete details ([id number] part B). [place]: Dr. Susy Kim. Dr. John Cevallos was notified of the findings at 10:40 AM on 11/04/2019. Pathologist ICD10: 02 C34.92 Signed out by: 02 Blanquita Guzman MD, Pathologist NPI- [id number] Performed by: Clarice Amaya, Brown Sourer ([facility]) Gross description: 2 FX /LCS 11/02/2019 1323 Local FLAG LEGEND: L-Low Normal,H-High Normal,LL-Alert Low,HH-Alert High <-Panic Low,>-Panic High,A-Abnormal,AA-Critical Abnormal Performed at: 01 [facility] [address] [facility] [address] [place] [address] Krishan Flores MD, [address] [place] [address] [address] Blanquita Guzman MD, Specimen Comment: A duplicate report has been generated due to demographic updates. Performed at: [address] [address] PATHOLOGY RPT PROCEDURE Name: BJ HODGES Christopher Room #: 236-P [facility] IN [facility]#: [id number] Admission: 10/25/19 Date of : 48 Discharge: 11/04/19 Report #: [id number] Path Case #: [id number] [facility] [address] [facility] [address], [place], [place] [id number] MD Krishan Flores MD Phone: [phone]
== END 2019-11-04 18:54 | disposition short-term general hospital (02) | DRG 166 ==
LOC: ER 23:22 → EROBS 10-25 01:18 → ICU 10-25 01:18
PROVIDERS: Emergency Medicine; Hospitalist; Internal Medicine Pulmonary Disease; Nurse Practitioner Family; Pediatrics; Radiology Vascular & Interventional Radiology; Specialist; ADMIT Hospitalist
DX: J96.21 Acute and chronic respiratory failure with hypoxia (principal); I21.4 Non-ST elevation (NSTEMI) myocardial infarction; I50.33 Acute on chronic diastolic (congestive) heart failure; G92 Toxic encephalopathy; N17.9 Acute kidney failure, unspecified; J44.1 Chronic obstructive pulmonary disease with (acute) exacerbation; I13.0 Hypertensive heart and chronic kidney disease with heart failure and stage 1 through stage 4 chronic kidney disease, or unspecified chronic kidney disease; J98.11 Atelectasis; D62 Acute posthemorrhagic anemia; R04.89 Hemorrhage from other sites in respiratory passages; J90 Pleural effusion, not elsewhere classified; K21.9 Gastro-esophageal reflux disease without esophagitis; I27.20 Pulmonary hypertension, unspecified; F17.210 Nicotine dependence, cigarettes, uncomplicated; D64.9 Anemia, unspecified; D72.829 Elevated white blood cell count, unspecified; D35.00 Benign neoplasm of unspecified adrenal gland; N18.9 Chronic kidney disease, unspecified; F32.9 Major depressive disorder, single episode, unspecified; E53.8 Deficiency of other specified B group vitamins; E55.9 Vitamin D deficiency, unspecified; K43.9 Ventral hernia without obstruction or gangrene; J96.22 Acute and chronic respiratory failure with hypercapnia; J98.09 Other diseases of bronchus, not elsewhere classified; E87.6 Hypokalemia; I27.81 Cor pulmonale (chronic); Z83.6 Family history of other diseases of the respiratory system; Z88.5 Allergy status to narcotic agent; Z79.01 Long term (current) use of anticoagulants; Z90.49 Acquired absence of other specified parts of digestive tract; Z86.711 Personal history of pulmonary embolism; Z99.81 Dependence on supplemental oxygen; Z79.899 Other long term (current) drug therapy
CPT/HCPCS: 10078; 27000; 85076